=== PATIENT | female | born 1925 | race Caucasian/White ===

== ENCOUNTER 2017-01-30 20:42 | Inpatient (IN) | payer OTHER, MEDICARE ==
--- NOTE | 2017-01-30 20:53 | PDOC ---
Rapid Medical Evaluation Chief Complaint: Redness To Affected Area Time Seen by Provider: 01/30/17 20:50 Medical Evaluation: Allergies Allergy/AdvReac Type Severity Reaction Status Date / Time No Known Allergies Allergy Verified 01/30/17 20:49 01/30/17 20:51 89 year old female with history of HTN, HLD, hypothyroidism, buttock abscess requiring I&D presenting with 2 days of right cheek cellulitis. Started on Bactrim/Keflex by Urgent Care, now with "upset stomach", not eating, worsening pain and swelling in face. No fevers/chills. -Basic labs + blood cultures -To Main ED for further evaluation
[2017-01-30 21:12] LABS: BASOPHIL 0.7 % (0-2.0); EOSINOPHIL 0.2 % (0-4.5); MCH 30.9 pg (25.7-33.7); MCHC 33.7 g/dl (32.0-36.0); MEAN CELL VOLUME 91.7 fl (80-96); MEAN PLT VOLUME 7.6 fl (7.5-11.1); NEUTROPHILS 66.4 % (42.8-82.8); PLATELET COUNT 247 K/MM3 (134-434); WHITE BLOOD COUNT 5.5 K/mm3 (4.0-10.0)
[2017-01-30 21:38] LABS: ALBUMIN 3.6 g/dl (3.4-5.0); CALCIUM 8.6 mg/dL (8.5-10.1); COCKROFT - GAULT 30.9485; CREATININE 1.5 mg/dL (0.55-1.02)
[2017-01-30 21:40] LABS: BILIRUBIN,TOTAL 0.3 mg/dL (0.2-1.0); TOT PROT 6.3 g/dl (6.4-8.2)
[2017-01-30 21:56] LABS: INR 0.95 (0.82-1.09); PROTHROMBIN TIME (PATIENT) 10.4 SEC (9.98-11.88)
[2017-01-30] MEDS ORDERED: PIPERACILLIN/TAZOB 3.375 GM 3.375 GM in DEXTROSE 5%-WATER - 50 ML IVPB ONE (22:01)
[2017-01-30] MEDS ORDERED: SODIUM CHLORIDE 500 ML IV STA (22:02)
[2017-01-30] MEDS ORDERED: PIPERACILLIN/TAZOB 3.375 GM 50 ML IVPB ONE (22:19)
--- NOTE | 2017-01-30 22:41 | PDOC ---
History of Present Illness <SdDenisedain Stacy - Last Filed: 01/30/17 23:25> - History of Present Illness Initial Comments: 01/30/17 22:41 The patient is an 89 year old female with a past medical history of HTN, HLD, hypothyroidism, presents to the emergency department with her daughter at bed side, with a complaint of 2 days of right cheek cellulitis. Patient first noticed it two days ago and it since has been worsening in pain and swelling. Patient was started on Bactrim/ Keflex by urgent care yesterday. Since then has developed nausea, dizziness, a loss of appetite with abdominal discomfort and weakness. Denies fever, chills. Denies chest pain, shortness of breath. Surgical hx: breast cancer 1990,left partial mastectomy radiation PCP: Ping Gaviria Office number <Glen Ford - Last Filed: 01/30/17 23:29> - General Chief Complaint: Redness To Affected Area Stated Complaint: INFECTION Time Seen by Provider: 01/30/17 20:50 Past History - Past Medical History HTN: Yes Hypercholesterolemia: Yes Thyroid Disease: Yes Other medical history: renal insufficiency - Psycho/Social/Smoking Cessation Hx Suicidal Ideation: No Smoking History: Never smoked Substance Use Type: None <Denise Beaver - Last Filed: 01/30/17 23:25> <Glen Ford - Last Filed: 01/30/17 23:29> - Past Medical History Allergies/Adverse Reactions: Allergies Allergy/AdvReac Type Severity Reaction Status Date / Time No Known Allergies Allergy Verified 01/30/17 20:49 Home Medications: Ambulatory Orders Aspirin [ASA -] 81 mg PO DAILY 01/30/17 Atorvastatin Ca [Lipitor] 40 mg PO HS 01/30/17 Levothyroxine [Synthroid -] 25 mcg PO DAILY 01/30/17 Nebivolol [Bystolic -] 10 mg PO DAILY 01/30/17 Nifedipine ER [Procardia Xl -] 30 mg PO DAILY 01/30/17 Olmesartan/Hydrochlorothiazide [Benicar Hct 40-25 mg Tablet -] 1 tab PO DAILY Review of Systems - Review of Systems Able to Perform ROS?: Yes Comments:: 01/30/17 22:42 CONSTITUTIONAL: Present: Weakness loss of appetite. Absent: fever, chills, diaphoresis, malaise. HEENT: Absent: rhinorrhea, nasal congestion, throat pain, throat swelling, difficulty swallowing, mouth swelling, ear pain, eye pain, visual Changes CARDIOVASCULAR: Absent: chest pain, syncope, palpitations, irregular heart rate, lightheadedness , peripheral edema RESPIRATORY: Absent: cough, shortness of breath, dyspnea with exertion, orthopnea, wheezing, stridor, hemoptysis GASTROINTESTINAL: Present: abdominal discomfort, nausea. Absent: abdominal distension, vomiting, diarrhea, constipation, melena, hematochezia GENITOURINARY: Absent: dysuria, frequency, urgency, hesitancy, hematuria, flank pain, genital pain MUSCULOSKELETAL: Absent: myalgia, arthralgia, joint swelling SKIN: Absent: rash, itching, pallor HEMATOLOGIC/IMMUNOLOGIC: Absent: easy bleeding, easy bruising, lymphadenopathy, frequent infections ENDOCRINE: Absent: unexplained weight gain, unexplained weight loss, heat intolerance, cold intolerance NEUROLOGIC: Present: dizziness. Absent: headache, focal weakness or paresthesias, unsteady gait, seizure, mental status changes, bladder or bowel incontinence PSYCHIATRIC: Absent: anxiety, depression, suicidal or homicidal ideation, hallucinations. <Glen Ford - Last Filed: 01/30/17 23:29> *Physical Exam - Vital Signs Last Vital Signs Temp Pulse Resp BP Pulse Ox 97.5 F L 71 20 137/71 93 L 01/30/17 20:50 01/30/17 20:50 01/30/17 20:50 01/30/17 20:50 01/30/17 20:50 <Denise Beaver - Last Filed: 01/30/17 23:25> - Vital Signs Last Vital Signs Temp Pulse Resp BP Pulse Ox 97.5 F L 71 20 137/71 93 L 01/30/17 20:50 01/30/17 20:50 01/30/17 20:50 01/30/17 20:50 01/30/17 20:50 - Physical Exam Comments: 01/30/17 22:42 GENERAL: Well developed, well nourished. Awake and alert. No acute distress. HEENT: Normocephalic, atraumatic. PERRLA, EOMI. No conjunctival pallor. Sclera are non- icteric. Moist mucous membranes. Oropharynx is clear. NECK: Supple. Full ROM. No JVD. Carotid pulses 2+ and symmetric, without bruits. No thyromegaly. No lymphadenopathy. CARDIOVASCULAR: Regular rate and rhythm. No murmurs, rubs, or gallops. Distal pulses are 2+ and symmetric. PULMONARY: No evidence of respiratory distress. Lungs clear to auscultation bilaterally. No wheezing, rales or rhonchi. ABDOMINAL: Soft. Non-tender. Non-distended. No rebound or guarding. No organomegaly. Normoactive bowel sounds. MUSCULOSKELETAL Normal range of motion at all joints. No bony deformities or tenderness. No CVA tenderness. EXTREMITIES: No cyanosis. No clubbing. No edema. No calf tenderness. SKIN: Early eriocephalus on her face Warm and dry. Normal capillary refill . No jaundice. NEUROLOGICAL: Alert, awake, appropriate. Cranial nerves 2-12 intact. Gait is normal without ataxia. PSYCHIATRIC: Cooperative. Good eye contact. Appropriate mood and affect. <Glen Ford - Last Filed: 01/30/17 23:29> Heart Score/ECG Review #1 ECG reviewed & interpreted by me at: 23:22 01/30/17 23:28 Normal sinus rhythm Vent rate 72 Right bundle branch block <Glen Ford - Last Filed: 01/30/17 23:29> ED Treatment Course - LABORATORY CBC & Chemistry Diagram: 01/30/17 21:00 01/30/17 21:00 - ADDITIONAL ORDERS Additional order review: Laboratory Results 01/30/17 01/30/17 01/30/17 21:00 21:00 21:00 INR 0.95 Sodium 125 L Potassium 3.9 Chloride 85 L Carbon Dioxide 27 Anion Gap 13 BUN 22 H Creatinine 1.5 H Creat Clearance w eGFR 32.70 Random Glucose 127 H Lactic Acid 1.6 Calcium 8.6 Total Bilirubin 0.3 AST 22 ALT 23 Alkaline Phosphatase 50 Total Protein 6.3 L Albumin 3.6 01/30/17 21:00 RBC 3.78 MCV 91.7 MCHC 33.7 RDW 14.0 MPV 7.6 Neutrophils % 66.4 Lymphocytes % 20.5 Monocytes % 12.2 H Eosinophils % 0.2 Basophils % 0.7 - RADIOLOGY Radiology Studies Ordered: Category Date Time Status CHEST PA & LAT [RAD] Stat Radiology 01/30/17 22:02 Taken <Denise Beaver - Last Filed: 01/30/17 23:25> - LABORATORY CBC & Chemistry Diagram: 01/30/17 21:00 01/30/17 21:00 - ADDITIONAL ORDERS Additional order review: Laboratory Results 01/30/17 01/30/17 01/30/17 21:00 21:00 21:00 INR 0.95 Sodium 125 L Potassium 3.9 Chloride 85 L Carbon Dioxide 27 Anion Gap 13 BUN 22 H Creatinine 1.5 H Creat Clearance w eGFR 32.70 Random Glucose 127 H Lactic Acid 1.6 Calcium 8.6 Total Bilirubin 0.3 AST 22 ALT 23 Alkaline Phosphatase 50 Total Protein 6.3 L Albumin 3.6 01/30/17 21:00 RBC 3.78 MCV 91.7 MCHC 33.7 RDW 14.0 MPV 7.6 Neutrophils % 66.4 Lymphocytes % 20.5 Monocytes % 12.2 H Eosinophils % 0.2 Basophils % 0.7 <Glen Ford - Last Filed: 01/30/17 23:29> Medical Decision Making - Medical Decision Making 01/30/17 23:13 89-year-old female who been taking Keflex and Bactrim for a right facial abscess , but her tenderness and erythema worsened and now covers the whole right side of her face -pt complains of nausea,dizziness, and general weakness Past medical history significant for hypothyroidism, hypertension Patient is alert and oriented 3, vigorous appearing female with extensive right facial erythema and swelling -cbc unremarkable chemstries reveal hyponatremia, hyperglycemia, elevated renal function -pt received IV antibiotics ,IVF case discussed w Dr Harman who will admit the pt <Denise Beaver - Last Filed: 01/30/17 23:25> - Medical Decision Making 01/30/17 23:04 Loki Arreola Office called at 23:04 using number . Will be paged. Loki Arreola called back at 23:12, case discussed. <Glen Ford - Last Filed: 01/30/17 23:29> *DC/Admit/Observation/Transfer - Discharge Dispostion Admit: Yes <Denise Beaver - Last Filed: 01/30/17 23:25> - Attestations Scribe Attestion: 01/30/17 22:42 Documentation prepared by Glen Ford, acting as senior medical writer for Denise Beaver MD <Glen Ford - Last Filed: 01/30/17 23:29> Diagnosis at time of Disposition: Cellulitis of face, Dehydration, Hyperglycemia, Hyponatremia - Referrals Referrals: Ping Gaviria MD [Primary Care Provider] -
[2017-01-30 22:45] LABS: TROPONIN I 0.02 ng/ml (0.00-0.05)
[2017-01-30] MEDS ORDERED: oxyCODONE HCL 5 MG TABLET PO PRN (23:14)
[2017-01-30] MEDS ORDERED: ONDANSETRON 4 MG/2 ML VIAL IVPB PRN (23:14)
[2017-01-31] MEDS: SODIUM CHLORIDE 1,000 ML IV SCH (01:52)
[2017-01-31] MEDS: AMPICILLIN NA/SULBACTAM NA 3 GM in SODIUM CHLORIDE 100 ML IVPB SCH ×2 (03:50→11:10)
[2017-01-31] MEDS ORDERED: LEVOTHYROXINE NA 25 MCG TABLET (FP) ONE (07:28)
[2017-01-31] MEDS ORDERED: HEPARIN NA (PORCINE) 5,000 UNITS/ML 1ML VIAL ONE (07:28)
[2017-01-31] MEDS: HEPARIN NA (PORCINE) 5,000 UNITS/ML 1ML VIAL SQ SCH ×3 (07:30→22:59)
[2017-01-31] MEDS: LEVOTHYROXINE NA 25 MCG TABLET (FP) PO SCH (07:30)
[2017-01-31 07:32] LABS: BASOPHIL 0.8 % (0-2.0); EOSINOPHIL 0.5 % (0-4.5); MCHC 33.9 g/dl (32.0-36.0); MEAN CELL VOLUME 91.3 fl (80-96); MEAN PLT VOLUME 7.9 fl (7.5-11.1); NEUTROPHILS 58.8 % (42.8-82.8); PLATELET COUNT 207 K/MM3 (134-434); RDW 14.1 % (11.6-15.6); WHITE BLOOD COUNT 5.3 K/mm3 (4.0-10.0)
[2017-01-31 07:54] LABS: CALCIUM 8.3 mg/dL (8.5-10.1); COCKROFT - GAULT 38.6835; CREATININE 1.2 mg/dL (0.55-1.02); MAGNESIUM 1.9 mg/dL (1.8-2.4); PHOSPHOROUS 2.8 mg/dL (2.5-4.9)
--- NOTE | 2017-01-31 10:50 | EKG ---
Test Reason : Blood Pressure : / mmHG Vent. Rate : 072 BPM Atrial Rate : 072 BPM P-R Int : 172 ms QRS Dur : 132 ms QT Int : 446 ms P-R-T Axes : 091 089 026 degrees QTc Int : 488 ms NORMAL SINUS RHYTHM RIGHT BUNDLE BRANCH BLOCK ABNORMAL ECG NO PREVIOUS ECGS AVAILABLE Confirmed by MISHA GUAMAN MD ([id number]) on 01/31/2017 10:50:26 AM Referred By: Confirmed By:MISHA GUAMAN MD
--- NOTE | 2017-01-31 11:10 | HP ---
Admitting History and Physical - Primary Care Physician PCP: Ping Gaviria - Admission Chief Complaint: My face History of Present Illness: Ms Saez is a very pleasant 89 year old female who comes in with cellulitis on her face. She says it began 2 days ago. It started as a small area of redness but rapidly increased. She says it is hot and painful. She presented to an urgent care and was prescribed oral antibiotics. She started taking them, but had abdominal pain secondary to the antibiotics and stopped eating and drinking. She also had some nausea with the antibiotics as well. Because of this she presented to the ED. She denies fevers, chills, passing out, chest pain , shortness of breath, vomiting, diarrhea, constipation, difficulty or pain on urination. She has chronic leg edema that is unchanged. She says her face is feeling better today and that she is not having abdominal pain. History Source: Patient Limitations to Obtaining History: Language Barrier - Past Medical History Cardiovascular: Yes: HTN, Hyperlipdemia Endocrine: Yes: Hypothyroidism - Past Surgical History Past Surgical History: Yes: None - Smoking History Smoking history: Never smoked - Alcohol/Substance Use Hx Alcohol Use: No History of Substance Use: reports: None - Social History Usual Living Arrangement: Yes: With Child ADL: Independent History of Recent Travel: No Home Medications - Allergies Allergies/Adverse Reactions: Allergies Allergy/AdvReac Type Severity Reaction Status Date / Time No Known Allergies Allergy Verified 01/30/17 20:49 - Home Medications Home Medications: Ambulatory Orders Aspirin [ASA -] 81 mg PO DAILY 01/30/17 Atorvastatin Ca [Lipitor] 40 mg PO HS 01/30/17 Levothyroxine [Synthroid -] 25 mcg PO DAILY 01/30/17 Nebivolol [Bystolic -] 10 mg PO DAILY 01/30/17 Nifedipine ER [Procardia Xl -] 30 mg PO DAILY 01/30/17 Olmesartan/Hydrochlorothiazide [Benicar Hct 40-25 mg Tablet -] 1 tab PO DAILY Family Disease History - Family Disease History Family Disease History: Heart Disease: Father Review of Systems Findings/Remarks: full review of systems obtained, as per HPI and otherwise negative Physical Examination Vital Signs: Vital Signs Temperature 98.0 F 01/31/17 01:00 Pulse Rate 92 H 01/31/17 07:30 Respiratory Rate 18 01/31/17 01:00 Blood Pressure 136/67 01/31/17 07:30 O2 Sat by Pulse Oximetry (%) 95 01/31/17 07:30 Constitutional: Yes: Well Nourished, No Distress, Calm Eyes: Yes: EOM Intact, PERRL, Other (slight injection of R sclera) HENT: Yes: Pharyngeal Erythema Cardiovascular: Yes: Regular Rate and Rhythm. No: Gallop, Murmur, Rub Respiratory: Yes: Regular, CTA Bilaterally. No: Rales, Rhonchi, Wheezes Gastrointestinal: Yes: Normal Bowel Sounds, Soft. No: Distention, Tenderness Extremities: Yes: WNL Edema: Yes Edema: LLE: 1+, RLE: 1+ Labs: CBC, BMP 01/31/17 06:35 01/31/17 06:35 Problem List - Problems (1) Cellulitis of face Assessment/Plan: -patient presents with erysipelas of the face, failed outpatient antibiotics -admit to hospital -given zosyn in the ED, will continue with unasyn -patient says she is feeling better -no sinusitis or optical involvement on examination -will consult ID to evaluate as well -may need vancomycin for MRSA Code(s): L03.211 - CELLULITIS OF FACE (2) KAMERON (acute kidney injury) Assessment/Plan: -secondary to poor oral intake -continue IVF -holding ARB and HCTZ currently -improving Code(s): N17.9 - ACUTE KIDNEY FAILURE, UNSPECIFIED (3) Hyponatremia Assessment/Plan: -improved with hydration Code(s): E87.1 - HYPO-OSMOLALITY AND HYPONATREMIA (4) HTN (hypertension) Assessment/Plan: -continue bystolic and procardia -controlled, continue to monitor Code(s): I10 - ESSENTIAL (PRIMARY) HYPERTENSION (5) Hypothyroid Assessment/Plan: -continue synthroid Code(s): E03.9 - HYPOTHYROIDISM, UNSPECIFIED
[2017-01-31] MEDS ORDERED: ONDANSETRON 4 MG/2 ML VIAL ONE (11:25)
[2017-01-31] MEDS: ASPIRIN 81 MG CHEWABLE TABLETS PO SCH ×2 (11:57→17:33)
[2017-01-31] MEDS: NEBIVOLOL 10 MG TABLET (FP) PO SCH ×2 (11:57→17:34)
[2017-01-31] MEDS: LACTOBACILLUS ACIDOPHILUS 1 EACH TAB (FP) PO SCH (11:57)
[2017-01-31] MEDS: POLYETHYLENE GLYCOL 3350 119 GM BTL PO SCH (11:58)
[2017-01-31] MEDS: DOCUSATE SODIUM 100 MG CAPSULE (FP) PO SCH ×3 (11:58→22:59)
[2017-01-31] MEDS: NIFEdipine E.R. 30 MG TABLET (FP) PO SCH ×2 (11:58→17:33)
[2017-01-31 13:08] LABS: URINE APPEARANCE CLEAR; URINE BILIRUBIN NEGATIVE (NEGATIVE); URINE BLOOD NEGATIVE (NEGATIVE); URINE COLOR COLORLESS; URINE GLUCOSE (UA) NEGATIVE (NEGATIVE); URINE KETONE NEGATIVE (NEGATIVE); URINE LEUK ESTERASE NEGATIVE (NEGATIVE); URINE NITRITE NEGATIVE (NEGATIVE); URINE PROTEIN NEGATIVE (NEGATIVE); URINE UROBILINOGEN NEGATIVE E.U./dl (0.2-1.0)
[2017-01-31 15:35] VITALS: BMI 28.4
--- NOTE | 2017-01-31 17:37 | PN ---
Progress Note (short form) - Note Progress Note: ID Consult dictated R facial cellulitis, probable Erysipelas Possible Herpes Zoster Await c/s IV Vancomycin Valtrex 1gm po q8h
[2017-01-31] MEDS: VANCOMYCIN 1 GRAM (PRE-DOCKED) 250 ML IVPB SCH (18:08)
[2017-01-31] MEDS ORDERED: PT OWN MED DRAWER 7, Y5N ONE ×2 (18:17→20:02)
--- NOTE | 2017-01-31 19:35 | CONS ---
DATE OF CONSULTATION: DATE OF DICTATION: 01/31/2017 INFECTIOUS DISEASE CONSULTATION HISTORY OF PRESENT ILLNESS: The patient is an 89-year-old female evaluated for right facial cellulitis. She reports that on January 27, she began to experience pain in the right ear canal. She subsequently noted an area of erythema involving the right malar area. She noted several pustular lesions from which she was able to express clear fluid. She states that it was not al pus. She was seen in an where she was prescribed oral Bactrim and Keflex. She was unable to continue with the oral antibiotic therapy because of gastritis secondary to the medication. She presented to the emergency room with worsening right facial rash. In the emergency room, she was evaluated, cultures were obtained. She was empirically treated with Zosyn. She was also started on Unasyn. She denies any associated fever. No complaints of visual disturbance or hearing loss. No fever or chills. Of note, the patient had a soft tissue abscess of the buttock which was lanced several years ago as an outpatient. She is unaware of any history of MRSA or serious soft tissue infection requiring hospitalization. In addition, the patient states that she had chicken pox as a child in [place]. PAST MEDICAL HISTORY: Positive for hypertension, hypothyroidism, hyperlipidemia, history of breast cancer, history of buttock abscess. PAST SURGICAL HISTORY: Status post left partial mastectomy. ALLERGIES: No known allergies. MEDICATION: Aspirin, Lipitor, Synthroid, Bystolic, Procardia, Benicar. SOCIAL HISTORY: She is originally from [facility], has been living in the [place] for years. She lives at home with family members. No recent hospitalizations. She is a nonsmoker, nondrinker. SYSTEMS REVIEW: Neurologic: No loss of consciousness, seizure activity, or focal weakness. Cardiac: Negative chest pain or palpitations. Respiratory: Negative cough or sputum production. Gastrointestinal: As per HPI. Genitourinary: Negative for urinary tract infection. LABORATORY DATA: White count 5.3, hematocrit 34.8, platelets 207, BUN 14, creatinine 1.2. Urinalysis negative. Blood cultures pending. Chest x-ray negative for acute infiltrate. PHYSICAL EXAMINATION: General: She is awake and alert. She is in no acute distress. Vital signs: Temperature 98.2, blood pressure 143/72, pulse 102 regular, respirations 18 per minute. HEENT: Sclerae anicteric. No conjunctivitis. Examination of the face, there is an area of erythema, warmth, and induration involving the right malar area. There does appear to be tiny vesicles or pustules present in the area. They are tender and warm to touch. It extends from the malar area to the bridge of the nose; however, it does not cross the midline. Extraocular muscles are intact. No facial asymmetry. Neck: Supple. No palpable nodes. Cardiovascular: Heart sounds S1, S2. Respiratory: Lungs clear. Abdomen: Soft. Obese. Nontender. Extremities: Positive for edema. IMPRESSION: 1. Right facial cellulitis, probable erysipelas. 2. Possible herpes zoster. Await blood culture results. Would empirically cover for skin pathogens, specifically group A Streptococcus and possible MRSA with vancomycin. Will also start Valtrex 1 g orally every 8 hours for possible herpes zoster, IV fluid hydration, analgesics. Will follow. Thank you for the kind referral. PATSY BAILON M.D. [id number]
[2017-01-31] MEDS: ATORVASTATIN CA 40 MG TABLET (FP) PO SCH (22:58)
[2017-01-31] MEDS: valACYclovir HCL 500 MG TABLET (FP) PO SCH (22:59)
[2017-02-01] MEDS: valACYclovir HCL 500 MG TABLET (FP) PO SCH ×4 (04:50→22:56)
[2017-02-01] MEDS: ACETAMINOPHEN 325 MG TABLET (FP) PO PRN ×2 (04:51→12:35)
[2017-02-01] MEDS: VANCOMYCIN 1 GRAM (PRE-DOCKED) 250 ML IVPB SCH ×3 (04:51→18:00)
[2017-02-01] MEDS: SODIUM CHLORIDE 1,000 ML IV SCH ×2 (04:56→23:39)
[2017-02-01] MEDS: HEPARIN NA (PORCINE) 5,000 UNITS/ML 1ML VIAL SQ SCH ×3 (05:18→22:57)
[2017-02-01] MEDS: LEVOTHYROXINE NA 25 MCG TABLET (FP) PO SCH (06:34)
[2017-02-01 08:47] LABS: BASOPHIL 0.9 % (0-2.0); EOSINOPHIL 0.4 % (0-4.5); MCH 30.7 pg (25.7-33.7); MCHC 33.4 g/dl (32.0-36.0); MEAN CELL VOLUME 91.9 fl (80-96); MEAN PLT VOLUME 7.7 fl (7.5-11.1); NEUTROPHILS 61.5 % (42.8-82.8); PLATELET COUNT 214 K/MM3 (134-434); RDW 14.4 % (11.6-15.6); WHITE BLOOD COUNT 7.3 K/mm3 (4.0-10.0)
[2017-02-01 09:22] LABS: CALCIUM 8.1 mg/dL (8.5-10.1); COCKROFT - GAULT 51.884; CREATININE 0.9 mg/dL (0.55-1.02); MAGNESIUM 1.9 mg/dL (1.8-2.4); PHOSPHOROUS 2.4 mg/dL (2.5-4.9)
[2017-02-01] MEDS: NIFEdipine E.R. 30 MG TABLET (FP) PO SCH (11:05)
[2017-02-01] MEDS: NEBIVOLOL 10 MG TABLET (FP) PO SCH (11:05)
[2017-02-01] MEDS: DOCUSATE SODIUM 100 MG CAPSULE (FP) PO SCH ×2 (11:05→22:57)
[2017-02-01] MEDS: ASPIRIN 81 MG CHEWABLE TABLETS PO SCH (11:05)
[2017-02-01] MEDS: LACTOBACILLUS ACIDOPHILUS 1 EACH TAB (FP) PO SCH (11:06)
[2017-02-01] MEDS: POLYETHYLENE GLYCOL 3350 119 GM BTL PO SCH (11:21)
--- NOTE | 2017-02-01 13:45 | PN ---
Progress Note, Physician Chief Complaint: Ms Saez says she is still having pain in the side of her face. Daughter at bedside and notes that erythema is less but more pustules are forming. Patient denies cp, sob, n/v. - Current Medication List Current Medications: Active Medications Acetaminophen (Tylenol -) 650 mg PO Q4H PRN PRN Reason: FEVER OR PAIN Last Admin: 02/01/17 12:35 Dose: 650 mg Aspirin (Asa -) 81 mg PO DAILY [facility] Last Admin: 02/01/17 11:05 Dose: 81 mg Atorvastatin Calcium (Lipitor -) 40 mg PO HS [facility] Last Admin: 01/31/17 22:58 Dose: 40 mg Docusate Sodium (Colace -) 100 mg PO BID [facility] Last Admin: 02/01/17 11:05 Dose: 100 mg Heparin Sodium (Porcine) (Heparin -) 5,000 unit SQ TID [facility] Last Admin: 02/01/17 05:18 Dose: Not Given Sodium Chloride (Normal Saline -) 1,000 mls @ 75 mls/hr IV ASDIR [facility] Last Admin: 02/01/17 04:56 Dose: 75 mls/hr Vancomycin HCl (Vancomycin (Pre-Docked)) 250 mls @ 200 mls/hr IVPB BID@,18 [facility] Last Admin: 02/01/17 05:18 Dose: Not Given Lactobacillus Acidophilus (Bacid -) 1 tab PO DAILY [facility] Last Admin: 02/01/17 11:06 Dose: 1 tab Levothyroxine Sodium (Synthroid -) 25 mcg PO ACBK [facility] Last Admin: 02/01/17 06:34 Dose: 25 mcg Nebivolol (Bystolic -) 10 mg PO DAILY [facility] Last Admin: 02/01/17 11:05 Dose: 10 mg Nifedipine (Procardia Xl -) 30 mg PO DAILY [facility] Last Admin: 02/01/17 11:05 Dose: 30 mg Ondansetron HCl (Zofran Injection) 4 mg IVPB Q6H PRN PRN Reason: NAUSEA Last Admin: 01/31/17 11:15 Dose: 4 mg Oxycodone HCl (Roxicodone -) 5 mg PO Q4H PRN PRN Reason: PAIN Polyethylene Glycol (Miralax (For Daily Use) -) 17 gm PO DAILY [facility] Last Admin: 02/01/17 11:21 Dose: 17 gm Valacyclovir HCl (Valtrex -) 1,000 mg PO TID [facility] Last Admin: 02/01/17 05:18 Dose: Not Given - Objective Vital Signs: Vital Signs Temperature 99.3 F 02/01/17 06:26 Pulse Rate 76 02/01/17 06:26 Respiratory Rate 20 02/01/17 06:26 Blood Pressure 139/73 02/01/17 06:26 O2 Sat by Pulse Oximetry (%) 95 01/31/17 21:00 Constitutional: Yes: Well Nourished, No Distress, Calm HENT: Yes: Other (erythema with pustules) Cardiovascular: Yes: Regular Rate and Rhythm. No: Gallop, Murmur, Rub Respiratory: Yes: Regular, CTA Bilaterally. No: Rales, Rhonchi, Wheezes Gastrointestinal: Yes: Normal Bowel Sounds, Soft. No: Distention, Tenderness Extremities: Yes: WNL Edema: No Labs: CBC, BMP 02/01/17 07:30 02/01/17 07:30 INR, PTT INR 0.95 (0.82-1.09) 01/30/17 21:00 Problem List - Problems (1) Cellulitis of face Code(s): L03.211 - CELLULITIS OF FACE (2) KAMERON (acute kidney injury) Code(s): N17.9 - ACUTE KIDNEY FAILURE, UNSPECIFIED (3) Hyponatremia Code(s): E87.1 - HYPO-OSMOLALITY AND HYPONATREMIA (4) HTN (hypertension) Code(s): I10 - ESSENTIAL (PRIMARY) HYPERTENSION (5) Hypothyroid Code(s): E03.9 - HYPOTHYROIDISM, UNSPECIFIED Assessment/Plan (1) Cellulitis of face Assessment/Plan: -erysipelas vs varicella virus -ID following and case discussed -appreciate ID assistance -unasyn changed to vancomycin -valtrex started Code(s): L03.211 - CELLULITIS OF FACE (2) KAMERON (acute kidney injury) Assessment/Plan: -resolved -continue IVF today -if stable, discontinue IVF tomorrow Code(s): N17.9 - ACUTE KIDNEY FAILURE, UNSPECIFIED (3) Hyponatremia Assessment/Plan: -improved with hydration Code(s): E87.1 - HYPO-OSMOLALITY AND HYPONATREMIA (4) HTN (hypertension) Assessment/Plan: -continue bystolic and procardia -controlled, continue to monitor Code(s): I10 - ESSENTIAL (PRIMARY) HYPERTENSION (5) Hypothyroid Assessment/Plan: -continue synthroid Code(s): E03.9 - HYPOTHYROIDISM, UNSPECIFIED
[2017-02-01] MEDS ORDERED: PT OWN MED DRAWER 7, Y5N ONE ×3 (14:17→18:17)
[2017-02-01] MEDS: ATORVASTATIN CA 40 MG TABLET (FP) PO SCH (22:57)
[2017-02-02] MEDS ORDERED: PT OWN MED DRAWER 7, Y5N ONE ×3 (05:25→17:46)
[2017-02-02] MEDS: HEPARIN NA (PORCINE) 5,000 UNITS/ML 1ML VIAL SQ SCH ×3 (05:44→21:45)
[2017-02-02] MEDS: valACYclovir HCL 500 MG TABLET (FP) PO SCH ×3 (05:44→21:45)
[2017-02-02] MEDS: VANCOMYCIN 1 GRAM (PRE-DOCKED) 250 ML IVPB SCH ×2 (05:49→18:09)
[2017-02-02] MEDS: LEVOTHYROXINE NA 25 MCG TABLET (FP) PO SCH (06:12)
[2017-02-02 08:48] LABS: BASOPHIL 0.8 % (0-2.0); EOSINOPHIL 1.8 % (0-4.5); MCH 31.3 pg (25.7-33.7); MCHC 33.8 g/dl (32.0-36.0); MEAN CELL VOLUME 92.5 fl (80-96); MEAN PLT VOLUME 7.7 fl (7.5-11.1); NEUTROPHILS 55.6 % (42.8-82.8); PLATELET COUNT 237 K/MM3 (134-434); RDW 14.1 % (11.6-15.6); WHITE BLOOD COUNT 8.2 K/mm3 (4.0-10.0)
[2017-02-02 09:24] LABS: CALCIUM 8.1 mg/dL (8.5-10.1); COCKROFT - GAULT 51.884; CREATININE 0.9 mg/dL (0.55-1.02)
[2017-02-02] MEDS: NEBIVOLOL 10 MG TABLET (FP) PO SCH (10:51)
[2017-02-02] MEDS: LACTOBACILLUS ACIDOPHILUS 1 EACH TAB (FP) PO SCH (10:51)
[2017-02-02] MEDS: NIFEdipine E.R. 30 MG TABLET (FP) PO SCH (10:51)
[2017-02-02] MEDS: DOCUSATE SODIUM 100 MG CAPSULE (FP) PO SCH ×2 (10:51→21:45)
[2017-02-02] MEDS: ASPIRIN 81 MG CHEWABLE TABLETS PO SCH (10:51)
[2017-02-02] MEDS: POLYETHYLENE GLYCOL 3350 119 GM BTL PO SCH (10:51)
--- NOTE | 2017-02-02 11:21 | PN ---
Progress Note, Physician History of Present Illness: Reports less R facial pain decreased facial swelling No visual complaints No fever/ chills Tolerating antibiotics - Current Medication List Current Medications: Active Medications Acetaminophen (Tylenol -) 650 mg PO Q4H PRN PRN Reason: FEVER OR PAIN Last Admin: 02/01/17 12:35 Dose: 650 mg Aspirin (Asa -) 81 mg PO DAILY [facility] Last Admin: 02/02/17 10:51 Dose: 81 mg Atorvastatin Calcium (Lipitor -) 40 mg PO HS [facility] Last Admin: 02/01/17 22:57 Dose: 40 mg Docusate Sodium (Colace -) 100 mg PO BID [facility] Last Admin: 02/02/17 10:51 Dose: 100 mg Heparin Sodium (Porcine) (Heparin -) 5,000 unit SQ TID [facility] Last Admin: 02/02/17 05:44 Dose: 5,000 unit Sodium Chloride (Normal Saline -) 1,000 mls @ 75 mls/hr IV ASDIR [facility] Last Admin: 02/01/17 23:39 Dose: 75 mls/hr Vancomycin HCl (Vancomycin (Pre-Docked)) 250 mls @ 200 mls/hr IVPB BID@ [facility] Last Admin: 02/02/17 05:49 Dose: 200 mls/hr Lactobacillus Acidophilus (Bacid -) 1 tab PO DAILY [facility] Last Admin: 02/02/17 10:51 Dose: 1 tab Levothyroxine Sodium (Synthroid -) 25 mcg PO ACBK [facility] Last Admin: 02/02/17 06:12 Dose: 25 mcg Nebivolol (Bystolic -) 10 mg PO DAILY [facility] Last Admin: 02/02/17 10:51 Dose: 10 mg Nifedipine (Procardia Xl -) 30 mg PO DAILY [facility] Last Admin: 02/02/17 10:51 Dose: 30 mg Ondansetron HCl (Zofran Injection) 4 mg IVPB Q6H PRN PRN Reason: NAUSEA Last Admin: 01/31/17 11:15 Dose: 4 mg Oxycodone HCl (Roxicodone -) 5 mg PO Q4H PRN PRN Reason: PAIN Polyethylene Glycol (Miralax (For Daily Use) -) 17 gm PO DAILY [facility] Last Admin: 02/02/17 10:51 Dose: 17 gm Valacyclovir HCl (Valtrex -) 1,000 mg PO TID [facility] Last Admin: 02/02/17 05:44 Dose: 1,000 mg - Objective Vital Signs: Vital Signs Temperature 98.1 F 02/02/17 06:45 Pulse Rate 82 02/02/17 06:45 Respiratory Rate 20 02/02/17 06:45 Blood Pressure 136/54 02/02/17 06:45 O2 Sat by Pulse Oximetry (%) 95 02/01/17 21:00 Constitutional: Yes: No Distress Eyes: Yes: Conjunctiva Clear HENT: Yes: Other (decreased erythema/ swelling R face + dry pustular lesions) Cardiovascular: Yes: Regular Rate and Rhythm, S1, S2 Respiratory: Yes: CTA Bilaterally Gastrointestinal: Yes: Normal Bowel Sounds, Soft. No: Tenderness Labs: CBC, BMP 02/02/17 08:00 02/02/17 08:00 INR, PTT INR 0.95 (0.82-1.09) 01/30/17 21:00 Assessment/Plan +R facial cellulitis Erysipelas v. VZV Clinically improved Continue IV Vancomycin/ po Valtrex
--- NOTE | 2017-02-02 17:44 | PN ---
Progress Note, Physician Chief Complaint: Ms Saez says she is feeling much improved. Pain in her face is seriously reduced. No cp, sob,n/v - Current Medication List Current Medications: Active Medications Acetaminophen (Tylenol -) 650 mg PO Q4H PRN PRN Reason: FEVER OR PAIN Last Admin: 02/01/17 12:35 Dose: 650 mg Aspirin (Asa -) 81 mg PO DAILY [facility] Last Admin: 02/02/17 10:51 Dose: 81 mg Atorvastatin Calcium (Lipitor -) 40 mg PO HS [facility] Last Admin: 02/01/17 22:57 Dose: 40 mg Docusate Sodium (Colace -) 100 mg PO BID [facility] Last Admin: 02/02/17 10:51 Dose: 100 mg Heparin Sodium (Porcine) (Heparin -) 5,000 unit SQ TID [facility] Last Admin: 02/02/17 14:08 Dose: 5,000 unit Sodium Chloride (Normal Saline -) 1,000 mls @ 75 mls/hr IV ASDIR [facility] Last Admin: 02/01/17 23:39 Dose: 75 mls/hr Vancomycin HCl (Vancomycin (Pre-Docked)) 250 mls @ 200 mls/hr IVPB BID@18 [facility] Last Admin: 02/02/17 05:49 Dose: 200 mls/hr Lactobacillus Acidophilus (Bacid -) 1 tab PO DAILY [facility] Last Admin: 02/02/17 10:51 Dose: 1 tab Levothyroxine Sodium (Synthroid -) 25 mcg PO ACBK [facility] Last Admin: 02/02/17 06:12 Dose: 25 mcg Nebivolol (Bystolic -) 10 mg PO DAILY [facility] Last Admin: 02/02/17 10:51 Dose: 10 mg Nifedipine (Procardia Xl -) 30 mg PO DAILY [facility] Last Admin: 02/02/17 10:51 Dose: 30 mg Ondansetron HCl (Zofran Injection) 4 mg IVPB Q6H PRN PRN Reason: NAUSEA Last Admin: 01/31/17 11:15 Dose: 4 mg Oxycodone HCl (Roxicodone -) 5 mg PO Q4H PRN PRN Reason: PAIN Polyethylene Glycol (Miralax (For Daily Use) -) 17 gm PO DAILY [facility] Last Admin: 02/02/17 10:51 Dose: 17 gm Valacyclovir HCl (Valtrex -) 1,000 mg PO TID [facility] Last Admin: 02/02/17 14:08 Dose: 1,000 mg - Objective Vital Signs: Vital Signs Temperature 99.5 F 02/02/17 17:06 Pulse Rate 75 02/02/17 17:06 Respiratory Rate 20 02/02/17 17:06 Blood Pressure 139/69 02/02/17 17:06 O2 Sat by Pulse Oximetry (%) 95 02/01/17 21:00 Constitutional: Yes: Well Nourished, No Distress, Calm Eyes: Yes: Conjunctiva Clear HENT: Yes: Other (R sided erythema with pustules, much improved) Cardiovascular: Yes: Regular Rate and Rhythm. No: Gallop, Murmur, Rub Respiratory: Yes: Regular, CTA Bilaterally. No: Rales, Rhonchi, Wheezes Gastrointestinal: Yes: Normal Bowel Sounds, Soft. No: Distention, Tenderness Extremities: Yes: WNL Edema: No Labs: CBC, BMP 02/02/17 08:00 02/02/17 08:00 INR, PTT INR 0.95 (0.82-1.09) 01/30/17 21:00 Problem List - Problems (1) Cellulitis of face Code(s): L03.211 - CELLULITIS OF FACE (2) KAMERON (acute kidney injury) Code(s): N17.9 - ACUTE KIDNEY FAILURE, UNSPECIFIED (3) Hyponatremia Code(s): E87.1 - HYPO-OSMOLALITY AND HYPONATREMIA (4) HTN (hypertension) Code(s): I10 - ESSENTIAL (PRIMARY) HYPERTENSION (5) Hypothyroid Code(s): E03.9 - HYPOTHYROIDISM, UNSPECIFIED Assessment/Plan (1) Cellulitis of face Assessment/Plan: -erysipelas vs varicella virus -ID following -continue vancomycin and valtrex -much improved -plan for discharge pending when IV antibiotics are finished Code(s): L03.211 - CELLULITIS OF FACE (2) KAMERON (acute kidney injury) Assessment/Plan: -resolved -can stop IVF today Code(s): N17.9 - ACUTE KIDNEY FAILURE, UNSPECIFIED (3) Hyponatremia Assessment/Plan: -resolved Code(s): E87.1 - HYPO-OSMOLALITY AND HYPONATREMIA (4) HTN (hypertension) Assessment/Plan: -continue bystolic and procardia -controlled, continue to monitor Code(s): I10 - ESSENTIAL (PRIMARY) HYPERTENSION (5) Hypothyroid Assessment/Plan: -continue synthroid Code(s): E03.9 - HYPOTHYROIDISM, UNSPECIFIED (6) Hypophosphatemia -replace with neutra-phos
[2017-02-02] MEDS ORDERED: VANCOMYCIN 1 GRAM (PRE-DOCKED) 250 ML IVPB SCH (20:45)
[2017-02-02] MEDS: ATORVASTATIN CA 40 MG TABLET (FP) PO SCH (21:45)
[2017-02-02] MEDS: NAPH,MB-DB/K PH,MBDB POWDER PACKET PO SCH (21:48)
[2017-02-03] MEDS: HEPARIN NA (PORCINE) 5,000 UNITS/ML 1ML VIAL SQ SCH ×3 (06:20→22:27)
[2017-02-03] MEDS: LEVOTHYROXINE NA 25 MCG TABLET (FP) PO SCH (06:21)
[2017-02-03] MEDS: valACYclovir HCL 500 MG TABLET (FP) PO SCH ×3 (06:21→22:26)
[2017-02-03 07:35] LABS: BASOPHIL 0.9 % (0-2.0); EOSINOPHIL 1.9 % (0-4.5); MCH 31.1 pg (25.7-33.7); MCHC 33.8 g/dl (32.0-36.0); MEAN CELL VOLUME 92.1 fl (80-96); MEAN PLT VOLUME 7.5 fl (7.5-11.1); NEUTROPHILS 60.6 % (42.8-82.8); PLATELET COUNT 233 K/MM3 (134-434); RDW 14.1 % (11.6-15.6); WHITE BLOOD COUNT 9.7 K/mm3 (4.0-10.0)
[2017-02-03 08:04] LABS: ANION GAP 8 (8-16); CALCIUM 7.9 mg/dL (8.5-10.1); CO2 30 mmol/L (21-32); GLUCOSE,RANDOM 110 mg/dL (74-106); PHOSPHOROUS 2.6 mg/dL (2.5-4.9)
[2017-02-03 08:06] LABS: CREATININE 0.7 mg/dL (0.55-1.02)
--- NOTE | 2017-02-03 09:16 | PN ---
Progress Note, Physician Chief Complaint: Patient c/o mild SOB and Rt Facial Pain History of Present Illness: Elderly F admitted with R facial cellulitis treated for MRSA/Hepez Zoster Id on the board - Current Medication List Current Medications: Active Medications Acetaminophen (Tylenol -) 650 mg PO Q4H PRN PRN Reason: FEVER OR PAIN Last Admin: 02/01/17 12:35 Dose: 650 mg Aspirin (Asa -) 81 mg PO DAILY [facility] Last Admin: 02/02/17 10:51 Dose: 81 mg Atorvastatin Calcium (Lipitor -) 40 mg PO HS [facility] Last Admin: 02/02/17 21:45 Dose: 40 mg Docusate Sodium (Colace -) 100 mg PO BID [facility] Last Admin: 02/02/17 21:45 Dose: 100 mg Heparin Sodium (Porcine) (Heparin -) 5,000 unit SQ TID [facility] Last Admin: 02/03/17 06:20 Dose: 5,000 unit Vancomycin HCl (Vancomycin (Pre-Docked)) 250 mls @ 200 mls/hr IVPB Q24H [facility] Lactobacillus Acidophilus (Bacid -) 1 tab PO DAILY [facility] Last Admin: 02/02/17 10:51 Dose: 1 tab Levothyroxine Sodium (Synthroid -) 25 mcg PO ACBK [facility] Last Admin: 02/03/17 06:21 Dose: 25 mcg Nebivolol (Bystolic -) 10 mg PO DAILY [facility] Last Admin: 02/02/17 10:51 Dose: 10 mg Nifedipine (Procardia Xl -) 30 mg PO DAILY [facility] Last Admin: 02/02/17 10:51 Dose: 30 mg Ondansetron HCl (Zofran Injection) 4 mg IVPB Q6H PRN PRN Reason: NAUSEA Last Admin: 01/31/17 11:15 Dose: 4 mg Oxycodone HCl (Roxicodone -) 5 mg PO Q4H PRN PRN Reason: PAIN Polyethylene Glycol (Miralax (For Daily Use) -) 17 gm PO DAILY [facility] Last Admin: 02/02/17 10:51 Dose: 17 gm Potassium Phos/Sodium Phos (Phos-Nak Packet -) 1 packet PO BID [facility] Stop: 02/05/17 21:59 Last Admin: 02/02/17 21:48 Dose: 1 packet Valacyclovir HCl (Valtrex -) 1,000 mg PO TID [facility] Last Admin: 02/03/17 06:21 Dose: 1,000 mg - Objective Vital Signs: Vital Signs Temperature 99.5 F 02/02/17 17:06 Pulse Rate 75 02/02/17 17:06 Respiratory Rate 20 02/02/17 17:06 Blood Pressure 139/69 02/02/17 17:06 O2 Sat by Pulse Oximetry (%) 95 02/02/17 21:00 P Exam: General: Elderly F c/o mild SOB HEENT: Rt Facial lesion is improving still wide spread , indurating, Mm moist, anemia, PERRLA EOMI NECK: No JVD No Bruit CHEST: B/L minimal basal crepts CVS: S1S2 R no m/g/r ABD: No Distention, Non tender Bs + EXT; No edema feet, no calf Tenderness, Pulses + CIRCUIT [employer] JUDGE: AOX3 non focal Labs: CBC, BMP 02/03/17 06:15 02/03/17 06:15 INR, PTT INR 0.95 (0.82-1.09) 01/30/17 21:00 Problem List - Problems (1) KAMERON (acute kidney injury) Assessment/Plan: Improving on IV hydartion Code(s): N17.9 - ACUTE KIDNEY FAILURE, UNSPECIFIED (2) Cellulitis of face Assessment/Plan: On Vancomycine and Acyclovir as per Id recommendation still indurating, possible MRSA Code(s): L03.211 - CELLULITIS OF FACE (3) HTN (hypertension) Assessment/Plan: Well controlled cont current medications Code(s): I10 - ESSENTIAL (PRIMARY) HYPERTENSION (4) Dyspnea Assessment/Plan: c/o mild SOB H/O asthma, will F/U Pro BNP, Pulmonary consult. Code(s): R06.00 - DYSPNEA, UNSPECIFIED (5) Hypothyroid Assessment/Plan: Cont Levothyroxine Code(s): E03.9 - HYPOTHYROIDISM, UNSPECIFIED (6) Hyponatremia Assessment/Plan: Improving cont IV hydration observe closely for Pulmonary congestion. Code(s): E87.1 - HYPO-OSMOLALITY AND HYPONATREMIA
[2017-02-03] MEDS ORDERED: VANCOMYCIN 1 GRAM (PRE-DOCKED) 250 ML IVPB SCH (10:00)
[2017-02-03] MEDS: NAPH,MB-DB/K PH,MBDB POWDER PACKET PO SCH ×2 (10:52→22:27)
[2017-02-03] MEDS: DOCUSATE SODIUM 100 MG CAPSULE (FP) PO SCH ×2 (10:52→22:26)
[2017-02-03] MEDS: ASPIRIN 81 MG CHEWABLE TABLETS PO SCH (10:52)
[2017-02-03] MEDS: NEBIVOLOL 10 MG TABLET (FP) PO SCH (10:52)
[2017-02-03] MEDS: LACTOBACILLUS ACIDOPHILUS 1 EACH TAB (FP) PO SCH (10:52)
[2017-02-03] MEDS: NIFEdipine E.R. 30 MG TABLET (FP) PO SCH (10:52)
[2017-02-03] MEDS: POLYETHYLENE GLYCOL 3350 119 GM BTL PO SCH (10:53)
--- NOTE | 2017-02-03 11:00 | PN ---
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 last evening No c/o facial pain No fever/ chills WBC WNL - Current Medication List Current Medications: Active Medications Acetaminophen (Tylenol -) 650 mg PO Q4H PRN PRN Reason: FEVER OR PAIN Last Admin: 02/01/17 12:35 Dose: 650 mg Aspirin (Asa -) 81 mg PO DAILY [facility] Last Admin: 02/03/17 10:52 Dose: 81 mg Atorvastatin Calcium (Lipitor -) 40 mg PO HS [facility] Last Admin: 02/02/17 21:45 Dose: 40 mg Docusate Sodium (Colace -) 100 mg PO BID [facility] Last Admin: 02/03/17 10:52 Dose: 100 mg Heparin Sodium (Porcine) (Heparin -) 5,000 unit SQ TID [facility] Last Admin: 02/03/17 06:20 Dose: 5,000 unit Vancomycin HCl (Vancomycin (Pre-Docked)) 250 mls @ 200 mls/hr IVPB Q24H [facility] Last Admin: 02/03/17 10:52 Dose: 200 mls/hr Lactobacillus Acidophilus (Bacid -) 1 tab PO DAILY [facility] Last Admin: 02/03/17 10:52 Dose: 1 tab Levothyroxine Sodium (Synthroid -) 25 mcg PO ACBK [facility] Last Admin: 02/03/17 06:21 Dose: 25 mcg Nebivolol (Bystolic -) 10 mg PO DAILY [facility] Last Admin: 02/03/17 10:52 Dose: 10 mg Nifedipine (Procardia Xl -) 30 mg PO DAILY [facility] Last Admin: 02/03/17 10:52 Dose: 30 mg Ondansetron HCl (Zofran Injection) 4 mg IVPB Q6H PRN PRN Reason: NAUSEA Last Admin: 01/31/17 11:15 Dose: 4 mg Oxycodone HCl (Roxicodone -) 5 mg PO Q4H PRN PRN Reason: PAIN Polyethylene Glycol (Miralax (For Daily Use) -) 17 gm PO DAILY [facility] Last Admin: 02/03/17 10:53 Dose: 17 gm Potassium Phos/Sodium Phos (Phos-Nak Packet -) 1 packet PO BID [facility] Stop: 02/05/17 21:59 Last Admin: 02/03/17 10:52 Dose: 1 packet Valacyclovir HCl (Valtrex -) 1,000 mg PO TID [facility] Last Admin: 02/03/17 06:21 Dose: 1,000 mg - Objective Vital Signs: Vital Signs Temperature 99.5 F 02/02/17 17:06 Pulse Rate 75 02/02/17 17:06 Respiratory Rate 20 02/02/17 17:06 Blood Pressure 139/69 02/02/17 17:06 O2 Sat by Pulse Oximetry (%) 95 02/02/17 21:00 Constitutional: Yes: No Distress Eyes: Yes: Conjunctiva Clear HENT: Yes: Other (R facial swelling and erythema nearly all resolved + few pustular lesions, malar area no conjunctivitis or ocular discharge vision intact ) Cardiovascular: Yes: Regular Rate and Rhythm, S1, S2 Respiratory: Yes: Other (+ crepitations at bases bilaterally) Gastrointestinal: Yes: Normal Bowel Sounds, Soft. No: Tenderness Labs: CBC, BMP 02/03/17 06:15 02/03/17 06:15 INR, PTT INR 0.95 (0.82-1.09) 01/30/17 21:00 Assessment/Plan +R facial cellulitis Erysipelas v. VZV - improved Substitute po clindamycin 300mg q8h x 3 days Complete 7d course valtex (3 more days)
[2017-02-03] MEDS ORDERED: CLINDAMYCIN HCL 150 MG CAPSULE (FP) PO SCH (11:15)
[2017-02-03] MEDS ORDERED: FUROSEMIDE 40 MG/4 ML INJECTABLE VIAL IVPB ONE (15:54)
--- NOTE | 2017-02-03 15:54 | PN ---
Progress Note (short form) - Note Progress Note: PULMONARY CONSULTATION DICTATED 02/04/17 IMP DYSPNEA,BRONCHOSPASM LIKELY CHF FLUID OVERLOAD ? OBSTRUCTIVE AIRWAY DISEASE R FACIAL CELLULITIS HTN HLD H/O BREAST CA PLAN CHEST X-RAY O2 ECHO LASIX INHALED BRONCHODILATORS ANTIBIOTICS PER ID DECREASE FLUIDS DR MEADE Problem List - Problems (1) Cellulitis of face Code(s): L03.211 - CELLULITIS OF FACE (2) HTN (hypertension) Code(s): I10 - ESSENTIAL (PRIMARY) HYPERTENSION (3) Hypothyroid Code(s): E03.9 - HYPOTHYROIDISM, UNSPECIFIED (4) Dyspnea Code(s): R06.00 - DYSPNEA, UNSPECIFIED (5) Bronchospasm Code(s): J98.01 - ACUTE BRONCHOSPASM
[2017-02-03] MEDS: ATORVASTATIN CA 40 MG TABLET (FP) PO SCH (22:26)
[2017-02-03] MEDS: CLINDAMYCIN HCL 150 MG CAPSULE (FP) PO SCH (22:26)
[2017-02-04] MEDS: valACYclovir HCL 500 MG TABLET (FP) PO SCH ×3 (06:14→22:52)
[2017-02-04] MEDS: LEVOTHYROXINE NA 25 MCG TABLET (FP) PO SCH (06:14)
[2017-02-04] MEDS: CLINDAMYCIN HCL 150 MG CAPSULE (FP) PO SCH ×3 (06:14→22:51)
[2017-02-04] MEDS: HEPARIN NA (PORCINE) 5,000 UNITS/ML 1ML VIAL SQ SCH ×3 (06:15→22:52)
--- NOTE | 2017-02-04 07:36 | CONS ---
DATE OF CONSULTATION: 02/04/2017 REFERRING PHYSICIAN: Loki Harman MD HISTORY: The patient is an 89-year-old [place] female with past medical history of hypertension, hyperlipidemia, hypothyroidism, history of breast cancer in 1990, status post left partial mastectomy, postoperative treated with radiation therapy who is a nonsmoker admitted to [facility] with complaint of a 2-day history of right cheek cellulitis. The patient apparently noticed it 2 days prior to admission. Over the next couple of days, she started developing increasing pain and swelling at which time apparently she went to the urgent care center the day prior to admission and was started on Bactrim and Keflex. Since that time, she apparently developed nausea, dizziness, loss of appetite, abdominal discomfort, and weakness at which time she presented to [facility] ER and subsequently admitted for further therapy. On admission, she was evaluated by Dr. Alanis for Infectious Disease and placed on broad-spectrum antibiotics. Of note, earlier today the patient has been noticed to have bilateral crackles and wheezes. She denies any history of asthma. She is a nonsmoker. There is no apparent history of occupational exposure to chemicals or fumes. She denies any chest pain or palpitations. She denies any cough. PAST MEDICAL HISTORY: Again includes hypertension, hypothyroidism, hyperlipidemia, history of breast cancer status post left partial mastectomy, status post RT. REVIEW OF SYSTEMS: Positive intermittent shortness of breath and wheezing. No chest pain, no palpitations, no hemoptysis, no cough, no abdominal pain. Positive mild lower extremity edema. CURRENT MEDICATIONS: Include Zofran, Tylenol, clindamycin, heparin, Bacid, Bystolic, Colace, Procardia, Lipitor, aspirin, Valtrex, oxycodone, and Synthroid. PHYSICAL EXAMINATION: General: The patient is a well-developed, well-nourished female awake and alert currently in no acute distress. Vital Signs: She is currently afebrile. Temperature 99.5, blood pressure 139/69, respiratory rate 20, O2 saturation is 93% on 3 L. HEENT: Normocephalic and atraumatic. Neck: Supple. Heart: Regular S1, S2. Chest: Bilateral crackles 1/4 up with scattered bilateral wheezes. Abdomen: Soft. Bowel sounds are positive. Extremities: No cyanosis or edema. LABORATORIES: WBC 9.7, hemoglobin 11.4, hematocrit 33.6 with a platelet count of 233,000, INR 0.95. BUN 7, creatinine 0.7. Chest x-ray on the reveals no infiltrates and no effusions. Is and Os, patient's total intake greater than 4 L, output not documented. IMPRESSION: 1. Dyspnea, crackles, bronchospasm, possible mild fluid overload, mild congestive heart failure. 2. Possible mild obstructive airway disease, although the patient denies any history of asthma or chronic obstructive pulmonary disease and is a nonsmoker. 3. Right cheek cellulitis. 4. Hypothyroidism. 5. Hypertension. PLAN: Chest x-ray. Check BMP. Decrease IV fluids. Inhaled bronchodilators. May consider Lasix if chest x-ray reveals evidence of pulmonary venous congestion and elevated BMP and noted evidence of pulmonary vascular congestion. DEBRA MEADE M.D. [id number]
[2017-02-04 08:34] LABS: BASOPHIL 0.9 % (0-2.0); EOSINOPHIL 3.3 % (0-4.5); MCH 30.9 pg (25.7-33.7); MCHC 33.7 g/dl (32.0-36.0); MEAN CELL VOLUME 91.7 fl (80-96); MEAN PLT VOLUME 7.9 fl (7.5-11.1); NEUTROPHILS 50.4 % (42.8-82.8); PLATELET COUNT 263 K/MM3 (134-434); WHITE BLOOD COUNT 9.4 K/mm3 (4.0-10.0)
--- NOTE | 2017-02-04 08:44 | PN ---
Progress Note (short form) - Note Progress Note: Patient seen and examined. Chart reviewed at length. Currently lying supine in bed, alert responsive appropriate and in no distress. Mild facial discomfort persists. No chills noted. No increased cough or sense of dyspnea. Labs, radiologic procedures and jury consultant notes reviewed. Issue raised in regard to new onset respiratory symptoms. Medications Ondansetron HCl (Zofran Injection) 4 mg IVPB Q6H PRN PRN Reason: NAUSEA Last Admin: 01/31/17 11:15 Dose: 4 mg Nifedipine (Procardia Xl -) 30 mg PO DAILY [facility] Last Admin: 02/03/17 10:52 Dose: 30 mg Acetaminophen (Tylenol -) 650 mg PO Q4H PRN PRN Reason: FEVER OR PAIN Last Admin: 02/01/17 12:35 Dose: 650 mg Clindamycin HCl (Cleocin -) 300 mg PO TID [facility] Last Admin: 02/04/17 06:14 Dose: 300 mg Heparin Sodium (Porcine) (Heparin -) 5,000 unit SQ TID [facility] Last Admin: 02/04/17 06:15 Dose: 5,000 unit Lactobacillus Acidophilus (Bacid -) 1 tab PO DAILY [facility] Last Admin: 02/03/17 10:52 Dose: 1 tab Nebivolol (Bystolic -) 10 mg PO DAILY [facility] Last Admin: 02/03/17 10:52 Dose: 10 mg Docusate Sodium (Colace -) 100 mg PO BID [facility] Last Admin: 02/03/17 22:26 Dose: 100 mg Polyethylene Glycol (Miralax (For Daily Use) -) 17 gm PO DAILY [facility] Last Admin: 02/03/17 10:53 Dose: 17 gm Atorvastatin Calcium (Lipitor -) 40 mg PO HS [facility] Last Admin: 02/03/17 22:26 Dose: 40 mg Aspirin (Asa -) 81 mg PO DAILY [facility] Last Admin: 02/03/17 10:52 Dose: 81 mg Valacyclovir HCl (Valtrex -) 1,000 mg PO TID [facility] Last Admin: 02/04/17 06:14 Dose: 1,000 mg Oxycodone HCl (Roxicodone -) 5 mg PO Q4H PRN PRN Reason: PAIN Potassium Phos/Sodium Phos (Phos-Nak Packet -) 1 packet PO BID [facility] Stop: 02/05/17 21:59 Last Admin: 02/03/17 22:27 Dose: 1 packet Levothyroxine Sodium (Synthroid -) 25 mcg PO ACBK [facility] Last Admin: 02/04/17 06:14 Dose: 25 mcg Selected Entries 02/03/17 02/03/17 02/04/17 17:09 21:00 06:38 Temperature 98.9 F Pulse Rate 78 Respiratory 20 Rate Blood Pressure 141/72 O2 Sat by Pulse 95 Oximetry (%) Oxygen Delivery Room Air Method Weight 170 lb 9.6 oz Laboratory Tests 02/03/17 02/03/17 06:15 06:15 WBC 9.7 Hgb 11.4 Hct 33.6 Plt Count 233 Sodium 136 Potassium 4.0 Chloride 98 Carbon Dioxide 30 BUN 7 Creatinine 0.7 D Random Glucose 110 H Calcium 7.9 L Phosphorus 2.6 D Magnesium 2.0 B-Natriuretic Peptide 3466.96 H Today's CMP and CBC pending Chest Bibasilar dry rales with some mild end-expiratory wheeze Mid to upper airways clear to auscultation bilaterally Cor RRR Abd Soft non-tender BS positive Ext No edema No phlebitis Right facial erythema fading Area on right cheek of possible drying vesicle Neuro No new focal deficit Assessment and Plan Facial cellulitis Possible erysipelas vs HVZ Continue oral clindamycin and Valcyclovir Can we discontinue or alter the isolation precautions? Dyspnea/Bronchospasm Rales at bases CXR reviewed Possible vascular congestion Elevated BNP noted but of questionable significance Pulmonary note appreciated Initially admitted with renal insufficiency and hyponatremia, possible overzealous volume replacement? May require cautious diuretic therapy and/or mild corticosteroid trial for mild wheezing. SaO2 95 on RA HPL Stable HTN Stable Hypothyroid Stable Hyponatremia Improved Renal insufficiency Improved H/O left breast cancer post partial mastectomy and XRT Hypophosphatemia Stable Will likely self-correct Continue current Rx Follow clinically Await labs Further pulmonary input appreciated
[2017-02-04 08:59] LABS: ALBUMIN 2.8 g/dl (3.4-5.0); ANION GAP 10 (8-16); CALCIUM 8.1 mg/dL (8.5-10.1); CO2 32 mmol/L (21-32); GLUCOSE,RANDOM 95 mg/dL (74-106)
[2017-02-04 09:04] LABS: ALK PHOS 41 U/L (45-117); BILIRUBIN,TOTAL 0.5 mg/dL (0.2-1.0); CREATININE 0.7 mg/dL (0.55-1.02); SGOT/AST 26 U/L (15-37); SGPT/ALT 26 U/L (12-78); TOT PROT 5.8 g/dl (6.4-8.2)
[2017-02-04] MEDS: DOCUSATE SODIUM 100 MG CAPSULE (FP) PO SCH ×2 (09:46→22:51)
[2017-02-04] MEDS: NIFEdipine E.R. 30 MG TABLET (FP) PO SCH (09:46)
[2017-02-04] MEDS: LACTOBACILLUS ACIDOPHILUS 1 EACH TAB (FP) PO SCH (09:46)
[2017-02-04] MEDS: ASPIRIN 81 MG CHEWABLE TABLETS PO SCH (09:46)
[2017-02-04] MEDS: NEBIVOLOL 10 MG TABLET (FP) PO SCH (09:46)
[2017-02-04] MEDS: POLYETHYLENE GLYCOL 3350 119 GM BTL PO SCH (09:46)
[2017-02-04] MEDS: NAPH,MB-DB/K PH,MBDB POWDER PACKET PO SCH ×2 (09:47→22:52)
--- NOTE | 2017-02-04 14:34 | PN ---
Progress Note, Physician History of Present Illness: PULMONARY ALERT,FEELING BETTER,LESS DYSPNEIC. - Current Medication List Current Medications: Active Medications Acetaminophen (Tylenol -) 650 mg PO Q4H PRN PRN Reason: FEVER OR PAIN Last Admin: 02/01/17 12:35 Dose: 650 mg Aspirin (Asa -) 81 mg PO DAILY [facility] Last Admin: 02/04/17 09:46 Dose: 81 mg Atorvastatin Calcium (Lipitor -) 40 mg PO HS [facility] Last Admin: 02/03/17 22:26 Dose: 40 mg Clindamycin HCl (Cleocin -) 300 mg PO TID [facility] Last Admin: 02/04/17 13:52 Dose: 300 mg Docusate Sodium (Colace -) 100 mg PO BID [facility] Last Admin: 02/04/17 09:46 Dose: 100 mg Heparin Sodium (Porcine) (Heparin -) 5,000 unit SQ TID [facility] Last Admin: 02/04/17 13:53 Dose: 5,000 unit Lactobacillus Acidophilus (Bacid -) 1 tab PO DAILY [facility] Last Admin: 02/04/17 09:46 Dose: 1 tab Levothyroxine Sodium (Synthroid -) 25 mcg PO ACBK [facility] Last Admin: 02/04/17 06:14 Dose: 25 mcg Nebivolol (Bystolic -) 10 mg PO DAILY [facility] Last Admin: 02/04/17 09:46 Dose: 10 mg Nifedipine (Procardia Xl -) 30 mg PO DAILY [facility] Last Admin: 02/04/17 09:46 Dose: 30 mg Ondansetron HCl (Zofran Injection) 4 mg IVPB Q6H PRN PRN Reason: NAUSEA Last Admin: 01/31/17 11:15 Dose: 4 mg Oxycodone HCl (Roxicodone -) 5 mg PO Q4H PRN PRN Reason: PAIN Polyethylene Glycol (Miralax (For Daily Use) -) 17 gm PO DAILY [facility] Last Admin: 02/04/17 09:46 Dose: 17 gm Potassium Phos/Sodium Phos (Phos-Nak Packet -) 1 packet PO BID [facility] Stop: 02/05/17 21:59 Last Admin: 02/04/17 09:47 Dose: 1 packet Valacyclovir HCl (Valtrex -) 1,000 mg PO TID [facility] Last Admin: 02/04/17 13:53 Dose: 1,000 mg - Objective Vital Signs: Vital Signs Temperature 98.9 F 02/04/17 06:38 Pulse Rate 78 02/04/17 06:38 Respiratory Rate 20 02/04/17 06:38 Blood Pressure 141/72 02/04/17 06:38 O2 Sat by Pulse Oximetry (%) 95 02/03/17 21:00 Constitutional: Yes: Well Nourished, Calm Eyes: Yes: WNL HENT: Yes: WNL Neck: Yes: WNL Cardiovascular: Yes: Regular Rate and Rhythm, S1, S2 Respiratory: Yes: Rales (BIBASILAR CRACKLES,FEW SCATTERED WHEEZES) Gastrointestinal: Yes: Normal Bowel Sounds, Soft Extremities: Yes: WNL Edema: No Labs: CBC, BMP 02/04/17 06:35 02/04/17 06:35 INR, PTT INR 0.95 (0.82-1.09) 01/30/17 21:00 - ....Imaging Chest X-ray: Report Reviewed, Image Reviewed (MILD CONGESTION) Problem List - Problems (1) Cellulitis of face Code(s): L03.211 - CELLULITIS OF FACE (2) HTN (hypertension) Code(s): I10 - ESSENTIAL (PRIMARY) HYPERTENSION (3) Hypothyroid Code(s): E03.9 - HYPOTHYROIDISM, UNSPECIFIED (4) Dyspnea Code(s): R06.00 - DYSPNEA, UNSPECIFIED (5) Bronchospasm Code(s): J98.01 - ACUTE BRONCHOSPASM Assessment/Plan IMP DYSPNEA,BRONCHOSPASM LIKELY CHF FLUID OVERLOAD ? OBSTRUCTIVE AIRWAY DISEASE R FACIAL CELLULITIS HTN HLD H/O BREAST CA PLAN O2 ECHO LASIX 20mg x1 INHALED BRONCHODILATORS ANTIBIOTICS PER ID DECREASE FLUIDS STEROIDS X 24H DR MEADE Problem List - Problems (1) Cellulitis of face Code(s): L03.211 - CELLULITIS OF FACE (2) HTN (hypertension) Code(s): I10 - ESSENTIAL (PRIMARY) HYPERTENSION (3) Hypothyroid Code(s): E03.9 - HYPOTHYROIDISM, UNSPECIFIED (4) Dyspnea Code(s): R06.00 - DYSPNEA, UNSPECIFIED (5) Bronchospasm Code(s): J98.01 - ACUTE BRONCHOSPASM
[2017-02-04] MEDS: methylPREDNISolone NA SUCC 40 MG/1 ML VIAL IVPB SCH (17:15)
[2017-02-04] MEDS ORDERED: FUROSEMIDE 40 MG/4 ML INJECTABLE VIAL IVPB ONE (17:30)
[2017-02-04] MEDS ORDERED: PT OWN MED DRAWER 7, Y5N ONE (22:46)
[2017-02-04] MEDS: ATORVASTATIN CA 40 MG TABLET (FP) PO SCH (22:51)
[2017-02-05] MEDS: methylPREDNISolone NA SUCC 40 MG/1 ML VIAL IVPB SCH ×3 (01:37→21:26)
[2017-02-05] MEDS ORDERED: PT OWN MED DRAWER 7, Y5N ONE ×6 (05:44→21:10)
[2017-02-05] MEDS: CLINDAMYCIN HCL 150 MG CAPSULE (FP) PO SCH ×3 (06:22→21:27)
[2017-02-05] MEDS: HEPARIN NA (PORCINE) 5,000 UNITS/ML 1ML VIAL SQ SCH ×3 (06:22→21:26)
[2017-02-05] MEDS: valACYclovir HCL 500 MG TABLET (FP) PO SCH ×3 (06:22→21:27)
[2017-02-05] MEDS: LEVOTHYROXINE NA 25 MCG TABLET (FP) PO SCH (06:22)
[2017-02-05 08:19] LABS: BASOPHIL 0.5 % (0-2.0); MCHC 33.6 g/dl (32.0-36.0); MEAN CELL VOLUME 92.2 fl (80-96); MEAN PLT VOLUME 7.6 fl (7.5-11.1); NEUTROPHILS 73.6 % (42.8-82.8); PLATELET COUNT 284 K/MM3 (134-434); WHITE BLOOD COUNT 7.7 K/mm3 (4.0-10.0)
--- NOTE | 2017-02-05 08:26 | PN ---
Progress Note (short form) - Note Progress Note: Patient seen and examined. Chart reviewed. Currently lying supine in bed, alert responsive appropriate and in no distress. Less facial discomfort reported. No chills or fever. Decreased cough and sense of dyspnea. Labs, radiologic procedures and construction safety consultant notes reviewed. Case discussed with Dr Mccullough. Has received diuretic therapy, and yesterday received corticosteroids with good effect. Selected Entries 02/05/17 06:00 Temperature 98.1 F Pulse Rate 67 Respiratory 18 Rate Blood Pressure 121/50 Today's CMP and CBC pending form today Chest Clearing of previous bibasilar dry rales and mild expiratory wheeze. Airways clear to auscultation bilaterally Cor RRR Abd Soft non-tender BS positive Ext No edema No phlebitis Right facial erythema fading Area on right cheek of possible drying vesicle Neuro No new focal deficit Assessment and Plan Facial cellulitis Possible erysipelas vs HVZ Continue oral clindamycin and Valcyclovir Isolation precautions changed Dyspnea/Bronchospasm Rales at bases Previous CXR reviewed Possible vascular congestion Elevated BNP noted but of questionable significance Pulmonary note and input appreciated Excellent response to intial diuretic therapy followed by steroid trial Increase activity and check SaO2 on RA pre/post exertion HPL Stable HTN Stable Hypothyroid Stable Hyponatremia Improved Renal insufficiency Improved H/O left breast cancer post partial mastectomy and XRT Hypophosphatemia Stable Will likely self-correct Continue current Rx Follow clinically Await labs Further pulmonary input appreciated Discharge planning
[2017-02-05 08:39] LABS: ALBUMIN 2.8 g/dl (3.4-5.0); ANION GAP 6 (8-16); CALCIUM 8.3 mg/dL (8.5-10.1); CO2 34 mmol/L (21-32); GLUCOSE,RANDOM 128 mg/dL (74-106)
[2017-02-05 08:43] LABS: ALK PHOS 47 U/L (45-117); BILIRUBIN,TOTAL 0.4 mg/dL (0.2-1.0); CREATININE 0.8 mg/dL (0.55-1.02); SGOT/AST 33 U/L (15-37); SGPT/ALT 36 U/L (12-78); TOT PROT 6.1 g/dl (6.4-8.2)
[2017-02-05] MEDS: NEBIVOLOL 10 MG TABLET (FP) PO SCH (11:41)
[2017-02-05] MEDS: LACTOBACILLUS ACIDOPHILUS 1 EACH TAB (FP) PO SCH (11:41)
[2017-02-05] MEDS: NIFEdipine E.R. 30 MG TABLET (FP) PO SCH (11:41)
[2017-02-05] MEDS: NAPH,MB-DB/K PH,MBDB POWDER PACKET PO SCH (11:42)
[2017-02-05] MEDS: DOCUSATE SODIUM 100 MG CAPSULE (FP) PO SCH ×2 (11:42→21:27)
[2017-02-05] MEDS: POLYETHYLENE GLYCOL 3350 119 GM BTL PO SCH (11:42)
[2017-02-05] MEDS: ASPIRIN 81 MG CHEWABLE TABLETS PO SCH (12:02)
--- NOTE | 2017-02-05 14:06 | PN ---
Progress Note, Physician History of Present Illness: PULMONARY ALERT,FEELING BETTER BUT STILL C/O SOB WITH EXERTION - Current Medication List Current Medications: Active Medications Acetaminophen (Tylenol -) 650 mg PO Q4H PRN PRN Reason: FEVER OR PAIN Last Admin: 02/01/17 12:35 Dose: 650 mg Aspirin (Asa -) 81 mg PO DAILY [facility] Last Admin: 02/05/17 12:02 Dose: 81 mg Atorvastatin Calcium (Lipitor -) 40 mg PO HS [facility] Last Admin: 02/04/17 22:51 Dose: 40 mg Clindamycin HCl (Cleocin -) 300 mg PO TID [facility] Last Admin: 02/05/17 06:22 Dose: 300 mg Docusate Sodium (Colace -) 100 mg PO BID [facility] Last Admin: 02/05/17 11:42 Dose: 100 mg Heparin Sodium (Porcine) (Heparin -) 5,000 unit SQ TID [facility] Last Admin: 02/05/17 06:22 Dose: 5,000 unit Lactobacillus Acidophilus (Bacid -) 1 tab PO DAILY [facility] Last Admin: 02/05/17 11:41 Dose: 1 tab Levothyroxine Sodium (Synthroid -) 25 mcg PO ACBK [facility] Last Admin: 02/05/17 06:22 Dose: 25 mcg Methylprednisolone Sodium Succinate (Solu-Medrol -) 20 mg IVPB Q8H-IV [facility] Last Admin: 02/05/17 11:41 Dose: 20 mg Nebivolol (Bystolic -) 10 mg PO DAILY [facility] Last Admin: 02/05/17 11:41 Dose: 10 mg Nifedipine (Procardia Xl -) 30 mg PO DAILY [facility] Last Admin: 02/05/17 11:41 Dose: 30 mg Ondansetron HCl (Zofran Injection) 4 mg IVPB Q6H PRN PRN Reason: NAUSEA Last Admin: 01/31/17 11:15 Dose: 4 mg Oxycodone HCl (Roxicodone -) 5 mg PO Q4H PRN PRN Reason: PAIN Polyethylene Glycol (Miralax (For Daily Use) -) 17 gm PO DAILY [facility] Last Admin: 02/05/17 11:42 Dose: 17 gm Potassium Phos/Sodium Phos (Phos-Nak Packet -) 1 packet PO BID [facility] Stop: 02/05/17 21:59 Last Admin: 02/05/17 11:42 Dose: 1 packet Valacyclovir HCl (Valtrex -) 1,000 mg PO TID [facility] Last Admin: 02/05/17 06:22 Dose: 1,000 mg - Objective Vital Signs: Vital Signs Temperature 98.0 F 02/05/17 08:58 Pulse Rate 82 02/05/17 08:58 Respiratory Rate 20 02/05/17 08:58 Blood Pressure 142/75 02/05/17 08:58 O2 Sat by Pulse Oximetry (%) 98 02/05/17 09:00 Constitutional: Yes: Well Nourished, Calm Eyes: Yes: WNL HENT: Yes: WNL Neck: Yes: WNL Cardiovascular: Yes: Regular Rate and Rhythm, S1, S2 Respiratory: Yes: Rales Gastrointestinal: Yes: Normal Bowel Sounds, Soft Extremities: Yes: WNL Edema: No Labs: CBC, BMP 02/05/17 06:30 02/05/17 06:30 INR, PTT INR 0.95 (0.82-1.09) 01/30/17 21:00 Problem List - Problems (1) Cellulitis of face Code(s): L03.211 - CELLULITIS OF FACE (2) HTN (hypertension) Code(s): I10 - ESSENTIAL (PRIMARY) HYPERTENSION (3) Hypothyroid Code(s): E03.9 - HYPOTHYROIDISM, UNSPECIFIED (4) Dyspnea Code(s): R06.00 - DYSPNEA, UNSPECIFIED (5) Bronchospasm Code(s): J98.01 - ACUTE BRONCHOSPASM Assessment/Plan IMP DYSPNEA,BRONCHOSPASM LIKELY CHF FLUID OVERLOAD ? OBSTRUCTIVE AIRWAY DISEASE R FACIAL CELLULITIS HTN HLD H/O BREAST CA PLAN O2 ECHO IN AM LASIX 20mg x1 INHALED BRONCHODILATORS ANTIBIOTICS PER ID DECREASE FLUIDS DR MEADE Problem List - Problems (1) Cellulitis of face Code(s): L03.211 - CELLULITIS OF FACE (2) HTN (hypertension) Code(s): I10 - ESSENTIAL (PRIMARY) HYPERTENSION (3) Hypothyroid Code(s): E03.9 - HYPOTHYROIDISM, UNSPECIFIED (4) Dyspnea Code(s): R06.00 - DYSPNEA, UNSPECIFIED (5) Bronchospasm Code(s): J98.01 - ACUTE BRONCHOSPASM
[2017-02-05] MEDS ORDERED: FUROSEMIDE 40 MG/4 ML INJECTABLE VIAL IVPB ONE (14:30)
[2017-02-05] MEDS: ACETAMINOPHEN 325 MG TABLET (FP) PO PRN (20:55)
[2017-02-05] MEDS: ATORVASTATIN CA 40 MG TABLET (FP) PO SCH (21:27)
[2017-02-06] MEDS ORDERED: PT OWN MED DRAWER 7, Y5N ONE ×3 (06:09→23:59)
[2017-02-06] MEDS: valACYclovir HCL 500 MG TABLET (FP) PO SCH ×3 (06:23→22:33)
[2017-02-06] MEDS: HEPARIN NA (PORCINE) 5,000 UNITS/ML 1ML VIAL SQ SCH ×3 (06:24→22:34)
[2017-02-06] MEDS: LEVOTHYROXINE NA 25 MCG TABLET (FP) PO SCH (06:24)
[2017-02-06] MEDS: CLINDAMYCIN HCL 150 MG CAPSULE (FP) PO SCH ×3 (06:24→22:33)
[2017-02-06 07:32] LABS: BASOPHIL 1.1 % (0-2.0); MCHC 33.9 g/dl (32.0-36.0); MEAN CELL VOLUME 91.7 fl (80-96); MEAN PLT VOLUME 7.7 fl (7.5-11.1); NEUTROPHILS 65.4 % (42.8-82.8); PLATELET COUNT 291 K/MM3 (134-434); RDW 13.9 % (11.6-15.6); WHITE BLOOD COUNT 10.7 K/mm3 (4.0-10.0)
[2017-02-06 08:15] LABS: ANION GAP 7 (8-16); CALCIUM 8.5 mg/dL (8.5-10.1); CO2 34 mmol/L (21-32); CREATININE 0.9 mg/dL (0.55-1.02); GLUCOSE,RANDOM 116 mg/dL (74-106)
--- NOTE | 2017-02-06 09:31 | PN ---
Physical Exam: SUBJECTIVE: Patient seen and examined for Dr. Harman today. OBJECTIVE: Vital Signs Period Temp Pulse Resp BP Sys/Tineo Pulse Ox Last 24 Hr 98.4 F-98.8 F 68-77 18-20 112-134/55-67 98 GENERAL: The patient is awake, alert, and fully oriented, in no acute distress.Has no c/o today HEAD: Normal with no signs of trauma. EYES: PERRL, extraocular movements intact, sclera anicteric, conjunctiva clear. No ptosis. ENT:states right ear pain is null now NECK: Trachea midline, full range of motion, supple. LUNGS: Breath sounds equal, clear to auscultation bilaterally, no wheezes, no crackles, no accessory muscle use. She states her SOB dyspnea now resolved HEART: Regular rate and rhythm, S1, S2 without murmur, rub or gallop. ABDOMEN: Soft, nontender, nondistended, normoactive bowel sounds, no guarding, no rebound, no hepatosplenomegaly, no masses. EXTREMITIES: 2+ pulses, warm, well-perfused, no edema. NEUROLOGICAL: Cranial nerves II through XII grossly intact. Normal speech, gait not observed. PSYCH: Normal mood, normal affect. SKIN: Warm, dry, normal turgor, no rashes or lesions noted Laboratory Results - last 24 hr 02/06/17 02/06/17 06:00 06:00 WBC 10.7 H D RBC 3.73 All Active Problems KAMERON (acute kidney injury) (Acute) Bronchospasm (Acute) Cellulitis of face (Acute) Dehydration (Acute) Dyspnea (Acute) HTN (hypertension) (Acute) Hyperglycemia (Acute) Hyponatremia (Acute) Hypothyroid (Acute) Hgb 11.6 Hct 34.2 MCV 91.7 MCHC 33.9 RDW 13.9 Plt Count 291 MPV 7.7 Neutrophils % 65.4 Lymphocytes % 28.4 D Monocytes % 5.1 D Eosinophils % 0.0 Basophils % 1.1 Sodium 138 Potassium 4.5 Chloride 97 L Carbon Dioxide 34 H Anion Gap 7 L BUN 15 D Creatinine 0.9 Random Glucose 116 H Calcium 8.5 Active Medications Generic Name Dose Route Start Last Admin Trade Name Freq PRN Reason Stop Dose Admin Acetaminophen 650 mg 01/30/17 23:14 02/05/17 20:55 Tylenol - PO 650 mg Q4H PRN Administration FEVER OR PAIN Aspirin 81 mg 01/31/17 10:00 02/05/17 12:02 Asa - PO 81 mg DAILY [facility] Administration Atorvastatin Calcium 40 mg 01/31/17 22:00 02/05/17 21:27 Lipitor - PO 40 mg HS [facility] Administration Clindamycin HCl 300 mg 02/03/17 22:00 02/06/17 06:24 Cleocin - PO 300 mg TID [facility] Administration Docusate Sodium 100 mg 01/31/17 10:00 02/05/17 21:27 Colace - PO 100 mg BID [facility] Administration Heparin Sodium (Porcine) 5,000 unit 01/31/17 06:00 02/06/17 06:24 Heparin - SQ 5,000 unit TID [facility] Administration Lactobacillus Acidophilus 1 tab 01/31/17 10:00 02/05/17 11:41 Bacid - PO 1 tab DAILY [facility] Administration Levothyroxine Sodium 25 mcg 01/31/17 07:00 02/06/17 06:24 Synthroid - PO 25 mcg ACBK [facility] Administration Methylprednisolone Sodium Succinate 20 mg 02/05/17 22:00 02/05/17 21:26 Solu-Medrol - IVPB 20 mg BID [facility] Administration Nebivolol 10 mg 01/31/17 10:00 02/05/17 11:41 Bystolic - PO 10 mg DAILY [facility] Administration Nifedipine 30 mg 01/31/17 10:00 02/05/17 11:41 Procardia Xl - PO 30 mg DAILY [facility] Administration Ondansetron HCl 4 mg 01/30/17 23:14 01/31/17 11:15 Zofran Injection IVPB 4 mg Q6H PRN Administration NAUSEA Oxycodone HCl 5 mg 01/30/17 23:14 Roxicodone - PO Q4H PRN PAIN Polyethylene Glycol 17 gm 01/31/17 10:00 02/05/17 11:42 Miralax (For Daily Use) - PO 17 gm DAILY [facility] Administration Valacyclovir HCl 1,000 mg 01/31/17 22:00 02/06/17 06:23 Valtrex - PO 1,000 mg TID [facility] Administration ASSESSMENT/PLAN: A/P: 89 yr old female with initially admitted for rash to right side of cheek/ face with some development of mild chest congestion 1. Facial cellulitis Possible erysipelas vs HVZ -appears dry and pt states less painful, no drainage -completing valtrex and clindamycin doses today. 2. dyspnea/Bronchospasm: -Pt denies SOB currently and on room air (oxygen sat 98) without any active SOB - ECHO pending today currently at bedside - completed trial of steriods and IV lasix x 1 and will monitor off today -bronchodilators as needed. -pulse ox 3. Electrolyte imbalances -now corrected as well as RI improved 4. Discharge plan -Daughter is coming up from [place] 02/07 to take care of her. Visit type - Emergency Visit Emergency Visit: No - New Patient This patient is new to me today: Yes Date on this admission: 02/06/17 - Critical Care Critical Care patient: No - Discharge Referral Referred to [facility] No
[2017-02-06] MEDS: ASPIRIN 81 MG CHEWABLE TABLETS PO SCH (10:17)
[2017-02-06] MEDS: DOCUSATE SODIUM 100 MG CAPSULE (FP) PO SCH ×2 (10:17→22:33)
[2017-02-06] MEDS: NEBIVOLOL 10 MG TABLET (FP) PO SCH (10:17)
[2017-02-06] MEDS: LACTOBACILLUS ACIDOPHILUS 1 EACH TAB (FP) PO SCH (10:17)
[2017-02-06] MEDS: RANITIDINE HCL 150 MG TABLET (FP) PO SCH (10:18)
[2017-02-06] MEDS: methylPREDNISolone NA SUCC 40 MG/1 ML VIAL IVPB SCH (10:18)
[2017-02-06] MEDS: NIFEdipine E.R. 30 MG TABLET (FP) PO SCH (10:18)
[2017-02-06] MEDS: POLYETHYLENE GLYCOL 3350 119 GM BTL PO SCH (10:20)
--- NOTE | 2017-02-06 14:17 | PN ---
Progress Note, Physician History of Present Illness: pulmonary alert,feeling better,-cough,less dyspneic - Current Medication List Current Medications: Active Medications Acetaminophen (Tylenol -) 650 mg PO Q4H PRN PRN Reason: FEVER OR PAIN Last Admin: 02/05/17 20:55 Dose: 650 mg Aspirin (Asa -) 81 mg PO DAILY [facility] Last Admin: 02/06/17 10:17 Dose: 81 mg Atorvastatin Calcium (Lipitor -) 40 mg PO HS [facility] Last Admin: 02/05/17 21:27 Dose: 40 mg Clindamycin HCl (Cleocin -) 300 mg PO TID [facility] Stop: 02/06/17 22:00 Last Admin: 02/06/17 13:42 Dose: 300 mg Docusate Sodium (Colace -) 100 mg PO BID [facility] Last Admin: 02/06/17 10:17 Dose: 100 mg Heparin Sodium (Porcine) (Heparin -) 5,000 unit SQ TID [facility] Last Admin: 02/06/17 13:42 Dose: 5,000 unit Lactobacillus Acidophilus (Bacid -) 1 tab PO DAILY [facility] Last Admin: 02/06/17 10:17 Dose: 1 tab Levothyroxine Sodium (Synthroid -) 25 mcg PO ACBK [facility] Last Admin: 02/06/17 06:24 Dose: 25 mcg Methylprednisolone Sodium Succinate (Solu-Medrol -) 20 mg IVPB BID [facility] Last Admin: 02/06/17 10:18 Dose: 20 mg Nebivolol (Bystolic -) 10 mg PO DAILY [facility] Last Admin: 02/06/17 10:17 Dose: 10 mg Nifedipine (Procardia Xl -) 30 mg PO DAILY [facility] Last Admin: 02/06/17 10:18 Dose: 30 mg Ondansetron HCl (Zofran Injection) 4 mg IVPB Q6H PRN PRN Reason: NAUSEA Last Admin: 01/31/17 11:15 Dose: 4 mg Oxycodone HCl (Roxicodone -) 5 mg PO Q4H PRN PRN Reason: PAIN Polyethylene Glycol (Miralax (For Daily Use) -) 17 gm PO DAILY [facility] Last Admin: 02/06/17 10:20 Dose: Not Given Ranitidine HCl (Zantac -) 150 mg PO DAILY [facility] Last Admin: 02/06/17 10:18 Dose: 150 mg Valacyclovir HCl (Valtrex -) 1,000 mg PO TID [facility] Stop: 02/06/17 22:00 Last Admin: 02/06/17 13:42 Dose: 1,000 mg - Objective Vital Signs: Vital Signs Temperature 98.8 F 02/06/17 06:00 Pulse Rate 72 02/06/17 06:00 Respiratory Rate 20 02/06/17 06:00 Blood Pressure 134/67 02/06/17 06:00 O2 Sat by Pulse Oximetry (%) 96 02/06/17 09:00 Constitutional: Yes: Well Nourished, Calm Eyes: Yes: WNL HENT: Yes: WNL Neck: Yes: WNL Cardiovascular: Yes: Regular Rate and Rhythm, S1, S2 Respiratory: Yes: Rales (few bibasilar crackles) Gastrointestinal: Yes: Normal Bowel Sounds, Soft Extremities: Yes: WNL Edema: No Labs: CBC, BMP 02/06/17 06:00 02/06/17 06:00 INR, PTT INR 0.95 (0.82-1.09) 01/30/17 21:00 Problem List - Problems (1) Cellulitis of face Code(s): L03.211 - CELLULITIS OF FACE (2) HTN (hypertension) Code(s): I10 - ESSENTIAL (PRIMARY) HYPERTENSION (3) Hypothyroid Code(s): E03.9 - HYPOTHYROIDISM, UNSPECIFIED (4) Dyspnea Code(s): R06.00 - DYSPNEA, UNSPECIFIED (5) Bronchospasm Code(s): J98.01 - ACUTE BRONCHOSPASM Assessment/Plan IMP DYSPNEA,BRONCHOSPASM IMPROVED LIKELY CHF FLUID OVERLOAD ? OBSTRUCTIVE AIRWAY DISEASE R FACIAL CELLULITIS HTN HLD H/O BREAST CA PLAN O2 CHECK ECHO INHALED BRONCHODILATORS ANTIBIOTICS PER ID DECREASE FLUIDS DR MEADE Problem List - Problems (1) Cellulitis of face Code(s): L03.211 - CELLULITIS OF FACE (2) HTN (hypertension) Code(s): I10 - ESSENTIAL (PRIMARY) HYPERTENSION (3) Hypothyroid Code(s): E03.9 - HYPOTHYROIDISM, UNSPECIFIED (4) Dyspnea Code(s): R06.00 - DYSPNEA, UNSPECIFIED (5) Bronchospasm Code(s): J98.01 - ACUTE BRONCHOSPASM
--- NOTE | 2017-02-06 14:40 | PN ---
Progress Note, Physician History of Present Illness: No c/o facial pain No c/o fever/ chills Breathing non-labored Afebrile WBC slightly elevated - Current Medication List Current Medications: Active Medications Acetaminophen (Tylenol -) 650 mg PO Q4H PRN PRN Reason: FEVER OR PAIN Last Admin: 02/05/17 20:55 Dose: 650 mg Aspirin (Asa -) 81 mg PO DAILY [facility] Last Admin: 02/06/17 10:17 Dose: 81 mg Atorvastatin Calcium (Lipitor -) 40 mg PO HS [facility] Last Admin: 02/05/17 21:27 Dose: 40 mg Clindamycin HCl (Cleocin -) 300 mg PO TID [facility] Stop: 02/06/17 22:00 Last Admin: 02/06/17 13:42 Dose: 300 mg Docusate Sodium (Colace -) 100 mg PO BID [facility] Last Admin: 02/06/17 10:17 Dose: 100 mg Heparin Sodium (Porcine) (Heparin -) 5,000 unit SQ TID [facility] Last Admin: 02/06/17 13:42 Dose: 5,000 unit Lactobacillus Acidophilus (Bacid -) 1 tab PO DAILY [facility] Last Admin: 02/06/17 10:17 Dose: 1 tab Levothyroxine Sodium (Synthroid -) 25 mcg PO ACBK [facility] Last Admin: 02/06/17 06:24 Dose: 25 mcg Nebivolol (Bystolic -) 10 mg PO DAILY [facility] Last Admin: 02/06/17 10:17 Dose: 10 mg Nifedipine (Procardia Xl -) 30 mg PO DAILY [facility] Last Admin: 02/06/17 10:18 Dose: 30 mg Ondansetron HCl (Zofran Injection) 4 mg IVPB Q6H PRN PRN Reason: NAUSEA Last Admin: 01/31/17 11:15 Dose: 4 mg Oxycodone HCl (Roxicodone -) 5 mg PO Q4H PRN PRN Reason: PAIN Polyethylene Glycol (Miralax (For Daily Use) -) 17 gm PO DAILY [facility] Last Admin: 02/06/17 10:20 Dose: Not Given Ranitidine HCl (Zantac -) 150 mg PO DAILY [facility] Last Admin: 02/06/17 10:18 Dose: 150 mg Valacyclovir HCl (Valtrex -) 1,000 mg PO TID [facility] Stop: 02/06/17 22:00 Last Admin: 02/06/17 13:42 Dose: 1,000 mg - Objective Vital Signs: Vital Signs Temperature 98.8 F 02/06/17 06:00 Pulse Rate 72 02/06/17 06:00 Respiratory Rate 20 02/06/17 06:00 Blood Pressure 134/67 02/06/17 06:00 O2 Sat by Pulse Oximetry (%) 96 02/06/17 09:00 Constitutional: Yes: No Distress Eyes: Yes: Conjunctiva Clear HENT: Yes: Other (R facial erythema and swelling nearly completely resolved + few dry pustular lesions R malar area) Cardiovascular: Yes: Regular Rate and Rhythm, S1, S2 Respiratory: Yes: Other (few crepitations at bases bilaterally) Gastrointestinal: Yes: Normal Bowel Sounds, Soft. No: Tenderness Edema: Yes Edema: LLE: 1+, RLE: 1+ Labs: CBC, BMP 02/06/17 06:00 02/06/17 06:00 INR, PTT INR 0.95 (0.82-1.09) 01/30/17 21:00 Assessment/Plan +R facial cellulitis Erysipelas v. VZV - nearly resolved D/C clindamycin / valtex after today's dose
[2017-02-06] MEDS: ATORVASTATIN CA 40 MG TABLET (FP) PO SCH (22:33)
[2017-02-07] MEDS: LEVOTHYROXINE NA 25 MCG TABLET (FP) PO SCH (06:02)
[2017-02-07] MEDS: HEPARIN NA (PORCINE) 5,000 UNITS/ML 1ML VIAL SQ SCH (06:02)
[2017-02-07 06:55] LABS: MCH 30.8 pg (25.7-33.7); MCHC 33.2 g/dl (32.0-36.0); MEAN CELL VOLUME 92.8 fl (80-96); MEAN PLT VOLUME 7.2 fl (7.5-11.1); PLATELET COUNT 337 K/MM3 (134-434); RDW 14.3 % (11.6-15.6)
[2017-02-07 07:21] LABS: ALBUMIN 2.9 g/dl (3.4-5.0); ALK PHOS 46 U/L (45-117); ANION GAP 5 (8-16); BILIRUBIN,TOTAL 0.3 mg/dL (0.2-1.0); CALCIUM 9.1 mg/dL (8.5-10.1); CO2 38 mmol/L (21-32); CREATININE 0.9 mg/dL (0.55-1.02); GLUCOSE,RANDOM 91 mg/dL (74-106); SGOT/AST 45 U/L (15-37); SGPT/ALT 55 U/L (12-78); TOT PROT 6.2 g/dl (6.4-8.2)
[2017-02-07] MEDS: ASPIRIN 81 MG CHEWABLE TABLETS PO SCH (09:21)
[2017-02-07] MEDS: LACTOBACILLUS ACIDOPHILUS 1 EACH TAB (FP) PO SCH (09:22)
[2017-02-07] MEDS: POLYETHYLENE GLYCOL 3350 119 GM BTL PO SCH (09:22)
[2017-02-07] MEDS: NIFEdipine E.R. 30 MG TABLET (FP) PO SCH (09:22)
[2017-02-07] MEDS: NEBIVOLOL 10 MG TABLET (FP) PO SCH (09:22)
[2017-02-07] MEDS: DOCUSATE SODIUM 100 MG CAPSULE (FP) PO SCH (09:22)
[2017-02-07] MEDS: RANITIDINE HCL 150 MG TABLET (FP) PO SCH (09:22)
--- NOTE | 2017-02-07 10:05 | PN ---
Progress Note (short form) - Note Progress Note: PULMONARY States breathing is at baseline. No cough or wheezing. Echocardiogram done showing pulmonary HTN, moderate mitral regurgitation. Last Vital Signs Temp Pulse Resp BP Pulse Ox 99.4 F 67 20 134/66 96 02/07/17 06:00 02/07/17 06:00 02/07/17 06:00 02/07/17 06:00 02/06/17 21:00 Gen: mildly tachypneic with exertion Heart: RRR, +systolic murmur Lung: decreased breath sounds at the bases Abd: soft, nontender Ext: no edema CBC, BMP 02/07/17 06:15 02/07/17 06:15 Active Medications Acetaminophen (Tylenol -) 650 mg PO Q4H PRN PRN Reason: FEVER OR PAIN Last Admin: 02/05/17 20:55 Dose: 650 mg Aspirin (Asa -) 81 mg PO DAILY [facility] Last Admin: 02/07/17 09:21 Dose: 81 mg Atorvastatin Calcium (Lipitor -) 40 mg PO HS [facility] Last Admin: 02/06/17 22:33 Dose: 40 mg Docusate Sodium (Colace -) 100 mg PO BID [facility] Last Admin: 02/07/17 09:22 Dose: 100 mg Heparin Sodium (Porcine) (Heparin -) 5,000 unit SQ TID [facility] Last Admin: 02/07/17 06:02 Dose: 5,000 unit Lactobacillus Acidophilus (Bacid -) 1 tab PO DAILY [facility] Last Admin: 02/07/17 09:22 Dose: 1 tab Levothyroxine Sodium (Synthroid -) 25 mcg PO ACBK [facility] Last Admin: 02/07/17 06:02 Dose: 25 mcg Nebivolol (Bystolic -) 10 mg PO DAILY [facility] Last Admin: 02/07/17 09:22 Dose: 10 mg Nifedipine (Procardia Xl -) 30 mg PO DAILY [facility] Last Admin: 02/07/17 09:22 Dose: 30 mg Ondansetron HCl (Zofran Injection) 4 mg IVPB Q6H PRN PRN Reason: NAUSEA Last Admin: 01/31/17 11:15 Dose: 4 mg Oxycodone HCl (Roxicodone -) 5 mg PO Q4H PRN PRN Reason: PAIN Polyethylene Glycol (Miralax (For Daily Use) -) 17 gm PO DAILY [facility] Last Admin: 02/07/17 09:22 Dose: Not Given Ranitidine HCl (Zantac -) 150 mg PO DAILY [facility] Last Admin: 02/07/17 09:22 Dose: 150 mg A/P Acute Bronchospasm resolved Facial Cellulitis Pulmonary HTN Mitral Regurgitation HTN Hyperlipidemia - inhaled bronchodilators as needed - will need outpt PFTs and possible PSG - DVT prophylaxis - can d/c home from pulmonary standpoint
[2017-02-07 10:37] VITALS: BP 145/67; PULSE 74; TEMP 98.8
--- NOTE | 2017-02-07 18:38 | DS ---
Physical Exam: SUBJECTIVE: Patient seen and examined OBJECTIVE: Vital Signs Period Temp Pulse Resp BP Sys/Tineo Pulse Ox Last 24 Hr 98.8 F-99.4 F 67-74 18-20 134-145/66-67 94-96 PHYSICAL EXAM GENERAL: The patient is awake, alert, and fully oriented, in no acute distress. HEAD: Normal with no signs of trauma. EYES: PERRL, extraocular movements intact, sclera anicteric, conjunctiva clear. ENT: Ears normal, nares patent, oropharynx clear without exudates, moist mucous membranes. NECK: Trachea midline, full range of motion, supple. LUNGS: Breath sounds equal, clear to auscultation bilaterally, no wheezes, no crackles, no accessory muscle use. HEART: Regular rate and rhythm, S1, S2 without murmur, rub or gallop. ABDOMEN: Soft, nontender, nondistended, normoactive bowel sounds, no guarding, no rebound, no hepatosplenomegaly, no masses. EXTREMITIES: 2+ pulses, warm, well-perfused, no edema. NEUROLOGICAL: Cranial nerves II through XII grossly intact. Normal speech, gait not observed. PSYCH: Normal mood, normal affect. SKIN: Warm, dry, normal turgor, no rashes or dry healing facial lesion LABS Laboratory Results - last 24 hr 02/07/17 02/07/17 06:15 06:15 WBC 12.0 H RBC 3.97 Hgb 12.3 Hct 36.9 MCV 92.8 MCHC 33.2 RDW 14.3 Plt Count 337 MPV 7.2 L Sodium 140 Potassium 4.3 Chloride 97 L Carbon Dioxide 38 H Anion Gap 5 L BUN 13 Creatinine 0.9 Creat Clearance w eGFR 58.95 Random Glucose 91 D Calcium 9.1 Total Bilirubin 0.3 D AST 45 H D ALT 55 D Alkaline Phosphatase 46 Total Protein 6.2 L Albumin 2.9 L HOSPITAL COURSE: Date of Admission:01/30/17 Date of Discharge: 02/07/17 The patient is an 89 year old female with a past medical history of HTN, HLD, hypothyroidism, presents to the emergency department with her daughter at bed side, with a complaint of 2 days of right cheek cellulitis. Patient first noticed it two days ago and it since has been worsening in pain and swelling. Patient was started on Bactrim/ Keflex by urgent care yesterday. Since then has developed nausea, dizziness, a loss of appetite with abdominal discomfort and weakness. Denies fever, chills. Denies chest pain, shortness of breath. For facial cellulitis Possible erysipelas vs HVZ, pt was evaluated by ID,initially , received, Vanco/Zosyn and Valtrex with improvement, ten transitioned to Clindamycin, now course completed. Pt remains afebrile with mild leukocytosis, DI Dr. Alanis cleared for discharge and recommend out pt followup on CBC. Blood cultures remains negative. For dyspnea/Bronchospasm: Pt received IV steroid with relief,pt was evaluated by pulmonary during the hospital stay, O2 sat remains stable on RA, will continue on bronchodilators as needed. and recommend out pt PFT. Echo doen, normal EF, Repeat cxR showed no acute pathology. *KAMERON : Likely due to diuretic use,r resolved with IV hydration *Hyponatremia: resolved *HTN : BP satbel, will cotn on home meds *Hypothyroid: Will continue on Synthroid Minutes to complete discharge: 40 Discharge Summary Reason For Visit: HYPONATREMIA/ HYPERGLYCEMIA/FACIAL CELLULITIS Condition: Stable - Instructions Diet, Activity, Other Instructions: Heart healthy diet. Follow up on CBC with primary care provider Referrals: Ping Gaviria MD [Primary Care Provider] - 1 Week Disposition: HOME - Home Medications Comprehensive Discharge Medication List: Ambulatory Orders Aspirin [ASA -] 81 mg PO DAILY 01/30/17 Atorvastatin Ca [Lipitor] 40 mg PO HS 01/30/17 Levothyroxine [Synthroid -] 25 mcg PO DAILY 01/30/17 Nebivolol [Bystolic -] 10 mg PO DAILY 01/30/17 Nifedipine ER [Procardia Xl -] 30 mg PO DAILY 01/30/17 Olmesartan/Hydrochlorothiazide [Benicar Hct 40-25 mg Tablet -] 1 tab PO DAILY This patient is new to me today: Yes Date on this admission: 02/07/17 Emergency Visit: Yes ED Registration Date: 01/30/17 Care time: The patient presented to the Emergency Department on the above date and was hospitalized for further evaluation of their emergent condition. Critical Care patient: No - Discharge Referral Referred to [facility] No
== END 2017-02-07 11:10 | disposition home or self-care (01) | DRG 603 ==
LOC: JER 20:42 → JERBED 23:25 → UNDOADMIN 01-31 00:01 → J5S 01-31 14:42 → J8W 01-31 21:23
PROVIDERS: ADMIT Internal Medicine; ATTEND Nurse Practitioner Family
DX: L03.211 Cellulitis of face (principal); N17.9 Acute kidney failure, unspecified; E87.1 Hypo-osmolality and hyponatremia; I10 Essential (primary) hypertension; E03.9 Hypothyroidism, unspecified; E78.5 Hyperlipidemia, unspecified; I27.2 Other secondary pulmonary hypertension; I34.0 Nonrheumatic mitral (valve) insufficiency; R06.00 Dyspnea, unspecified; Z85.3 Personal history of malignant neoplasm of breast; N28.9 Disorder of kidney and ureter, unspecified; E83.39 Other disorders of phosphorus metabolism; B02.9 Zoster without complications; A46 Erysipelas
CPT/HCPCS: 36415; 71010-TC; 71020-TC; 80048; 80053; 81003; 82550; 83605; 83735; 83880; 84100; 84484; 85025; 85027; 85610; 87040; 93005; 93010; 93306-TC; 94010; 94761; 99283-25; G0480; J1644